=== PATIENT | female | born 1940 | race American Indian/Alaskan Native ===

== ENCOUNTER 2016-12-21 06:50 | Inpatient (IN) | payer MEDICARE ==
[2016-12-21 06:50] VITALS: BMI 26.6
[2016-12-21] MEDS ORDERED: Sodium Chloride 0.9% 1,000 ML IV ONE (07:29)
[2016-12-21 07:55] LABS: INR 1.4
[2016-12-21 07:57] LABS: BASO # 0.1 K/uL (0.0-0.2); BASO % 0.5 % (0.0-2.0); EOS # 0.1 K/uL (0.0-0.7); EOS % 0.4 % (0.0-4.0); HEMATOCRIT 25.7 % (34.0-47.0); LYMPH # 0.8 K/uL (1.0-4.3); LYMPH % 5.5 % (20.0-40.0); MEAN CELL VOLUME 79.6 fL (81.0-99.0); MEAN CORPUSCULAR HEMOGLOBIN 24.8 pg (27.0-31.0); MEAN CORPUSCULAR HGB CONC 31.1 g/dL (33.0-37.0); MEAN PLATELET VOLUME 7.9 fL (7.2-11.7); MONO # 4.5 K/uL (0.0-0.8); MONO % 31.8 % (0.0-10.0); PLATELET COUNT 447 K/uL (130-400); RED CELL DISTRIBUTION WIDTH 21.4 % (11.5-14.5)
[2016-12-21 07:59] LABS: CHLORIDE 102 mmol/L (98-107); POTASSIUM 3.6 mmol/L (3.6-5.2); SODIUM 145 mmol/L (132-148)
[2016-12-21 08:01] LABS: GFR AFRICAN-AMERICAN > 60
[2016-12-21 08:02] LABS: ALB/GLOB RATIO 0.8 (1.0-2.1); ALKALINE PHOSPHATASE 290 U/L (38-126); ALT/SGPT 27 U/L (9-52); AST/SGOT 67 U/L (14-36); BILIRUBIN,TOTAL 1.1 mg/dL (0.2-1.3); BLOOD UREA NITROGEN 7 mg/dL (7-17); CARBON DIOXIDE 29 mmol/L (22-30); GLUCOSE,RANDOM 84 mg/dL (65-105)
[2016-12-21 08:03] LABS: CALCIUM 8.8 mg/dl (8.6-10.4)
[2016-12-21 08:31] LABS: NEUTROPHIL 63 % (50-75); TOTAL CELLS COUNTED 100
[2016-12-21 08:32] LABS: LARGE PLATELETS PRESENT
[2016-12-21] MEDS ORDERED: Sodium Chloride 0.9% 500 ML IV ONE ×2 (08:33→10:01)
--- NOTE | 2016-12-21 08:44 | C.PDOC ---
History Of Present Illness 76 year old female, with PMHx of partial hysterectomy, presents to ED with complaints of general malaise, and swelling to lower extremities. Pt notes that she lost 30lbs over the last 3 months. Pt admits to feeling "bumps" in the pelvis region. Pt notes being seen by PMD, Dr. Gutierrez, last week who instructed her to report to ER for further evaluation. Notes having normal BM today. Denies any blood in stool. Pt notes that she was started on Lasix for leg swelling few months ago. Otherwise, denies any chest pain, shortness of breath, palpitations, abdominal pain, n/v/d, dysuria, hematuria, fever, change in sensation, or any other associated symptoms at this time. Time Seen by Provider: 12/21/16 07:14 Chief Complaint (Nursing): Medical Clearance History Per: Patient History/Exam Limitations: no limitations Onset/Duration Of Symptoms: Days Current Symptoms Are (Timing): Still Present Recent travel outside of the [place]: No Additional History Per: Patient Past Medical History Reviewed: Historical Data, Nursing Documentation, Vital Signs Vital Signs: Last Vital Signs Temp 100 F H 12/21/16 12:45 Pulse 163 H 12/21/16 12:45 Resp 22 12/21/16 12:45 BP 137/74 12/21/16 12:45 Pulse Ox 96 12/21/16 12:45 - Medical History PMH: Arthritis (right knee) Family History: States: Unknown Family Hx - Social History Hx Alcohol Use: No Hx Substance Use: No - Immunization History Hx Tetanus Toxoid Vaccination: No Hx Influenza Vaccination: No Hx Pneumococcal Vaccination: No Review Of Systems Except As Marked, All Systems Reviewed And Found Negative. Constitutional: Positive for: Weakness, Malaise. Negative for: Fever, Chills Cardiovascular: Positive for: Edema (swelling to bilateral legs). Negative for : Chest Pain, Palpitations, Light Headedness Respiratory: Negative for: Cough, Shortness of Breath, Hemoptysis Gastrointestinal: Negative for: Nausea, Vomiting, Abdominal Pain, Diarrhea, Constipation, Hematochezia Genitourinary: Negative for: Dysuria, Frequency, Hematuria Musculoskeletal: Negative for: Leg Pain Skin: Positive for: Other ("bumps" in the pelvic region). Negative for: Rash, Bruising Neurological: Negative for: Headache, Dizziness Physical Exam - Physical Exam Appears: Non-toxic, No Acute Distress, Chronically Ill Skin: Normal Color, Warm, Dry, No Rash Head: Atraumatic, Normacephalic Eye(s): bilateral: Normal Inspection, EOMI Nose: Normal Oral Mucosa: Moist Neck: Normal ROM, Supple Chest: Symmetrical Cardiovascular: Rhythm Regular (tachycardic), No Murmur Respiratory: Normal Breath Sounds, No Accessory Muscle Use, No Rales, No Rhonchi , No Wheezing Gastrointestinal/Abdominal: Soft, No Tenderness, No Guarding, No Rebound, Other (multiple non-mobile masses in the r/l inguinal area. Well healed scar. ) Back: No CVA Tenderness Extremity: Normal ROM, No Tenderness, Pedal Edema (b/l), Capillary Refill (<2 sec.), No Deformity, Swelling (bilateral lower extremity edema) Extremity: Bilateral: Atraumatic, Normal Color And Temperature Neurological/Psych: Oriented x3, Normal Speech ED Course And Treatment - Laboratory Results Result Diagrams: 12/21/16 07:44 12/21/16 07:44 ECG: Interpreted By Me, Viewed By Me ECG Rhythm: Sinus Tachycardia Rate From EC (bpm) O2 Sat by Pulse Oximetry: 96 (on RA) Pulse Ox Interpretation: Normal Progress Note: Blood work, UA, EKG, Abd & pelvis CT ordered and reviewed. At 08: 20, I was informed by nurse that yaya is tachycardic in the 180s. Pt was evaluated by myself and Dr. Hunter at beside. Pt admits to being asymptomatic, pt denies any chest pain, shortness of breath, or dizziness. Additional EKG was ordered, which showed sinus tachycarida at 178bpm. On re-evaluation, pt hr is in the 100s and states she feels "better". Case discussed with Dr. Gutierrez who agrees upon plan and admission. Disposition - Disposition Disposition: HOSPITALIZED Disposition Time: 12:00 Condition: STABLE - Clinical Impression Clinical Impression: Anemia, Lymphadenopathy, Malaise and fatigue - PA / GI TECHNICIAN / Resident Statement MD/DO has reviewed & agrees with the documentation as recorded. - Scribe Statement The provider has reviewed the documentation as recorded by the Scribe Abisai Ya All medical record entries made by the Scribe were at my direction and personally dictated by me. I have reviewed the chart and agree that the record accurately reflects my personal performance of the history, physical exam, medical decision making, and the department course for this patient. I have also personally directed, reviewed, and agree with the discharge instructions and disposition.
[2016-12-21] MEDS ORDERED: Iodixanol 320 MG/ML 100 ML BOTTLE IV ONE (09:50)
--- NOTE | 2016-12-21 10:19 | RAD ---
Chest x-ray single frontal view History: Chest pain. Comparison: None available. Findings: Right hilar prominence. Right paratracheal airspace opacity may represent prominent vasculature. Mild venous congestion. Degenerative changes in the spine with paravertebral osteophytes. Mild calcification at the aortic knob. Tortuous aorta. Degenerative changes in the spine and shoulders. Impression: Right hilar prominence. Right paratracheal airspace opacity may represent prominent vasculature. Mild venous congestion.
--- NOTE | 2016-12-21 11:00 | CT ---
PROCEDURE: CT Abdomen and Pelvis with contrast HISTORY: pain COMPARISON: None. TECHNIQUE: Contrast dose: Visipaque 320, 100 cc. Radiation dose: Total exam DLP = 509 mGy-cm. This CT exam was performed using one or more of the following dose reduction techniques: Automated exposure control, adjustment of the mA and/or kV according to patient size, and/or use of iterative reconstruction technique. FINDINGS: LOWER THORAX: Unremarkable. LIVER: There are numerous poorly enhancing masses scattered more so 1 the right than left hepatic lobes with the largest area measuring over 10 cm at the right lobe liver likely reflecting confluent lesions suspicious for metastatic disease including potential lymphoma though this is not definite. Multiple lucencies are scattered throughout the spleen indicative of likely the same process. Spleen remains normal size with liver appearing upper limits of normal size. GALLBLADDER AND BILE DUCTS: Gallbladder is distended but limited evaluation to lack of oral contrast material with likely enlarged lymph nodes abutting it as well as the duodenum. No radiodense cholelithiasis. PANCREAS: No intrinsic pathology seen related to the pancreas are the pancreas is displaced anteriorly by extensive retroperitoneal lymphadenopathy appear. SPLEEN: See liver section above. ADRENALS: Unremarkable. No mass. KIDNEYS AND URETERS: Unremarkable. No hydronephrosis. No solid massA 3.1 cm cyst is seen at the midpole left kidney. There is a E 1.6 cm lucency identified at the midpole right kidney measuring 51 Hounsfield units possibly representing a a hyperdense cyst or possible nodule. Follow-up MRI or CT without contrast is advised for better characterization. No obstructive uropathy bilaterally. Additional tiny lucencies are seen at the mid to lower pole right kidney too small to characterize. VASCULATURE: Unremarkable. No aortic aneurysm. BOWEL: No bowel obstruction is appreciated however lack of oral contrast limits interpretation significantly. Thickening of the distal descending colon and primarily the sigmoid colon is appreciate suspicious for potential colitis or mass. Minimal pelvic ascites is appreciated. No definitive pericolic reaction is noted although sigmoid diverticular are identified. The amount of mural thickening appears out of context and separate from the greatest area of sigmoid diverticular change. APPENDIX: Normal appendix. PERITONEUM: Mild pelvic ascites identified. LYMPH NODES: Gross lymphadenopathy is appreciate throughout the abdomen and pelvis including confluent likely lymphoid tissue at the mid mid retroperitoneum measuring 12.0 x 8.0 cm. Large lymph nodes are seen the bilateral inguinal regions with lymph nodes measuring 6.1 cm and 5.2 cm in the right groin and inferior left inguinal lymph nodes measuring up to 3.7 cm greatest dimension. Moderate to severe pelvic side wall lymphadenopathy is appreciated as well. BLADDER: Unremarkable. REPRODUCTIVE: Prior hysterectomy disease. Clinically correlate. BONES: No acute fracture. OTHER FINDINGS: None. IMPRESSION: 1. Gross abdominal and pelvic lymphadenopathy is appreciated as discussed above displaced large retroperitoneal organs peripherally. Numerous poorly enhancing masses seen in the liver greater than the spleen suspicious for metastatic. Further clinical correlation is advised. 2. Retained fecal material obscures the colon and lack of oral contrast limits evaluation however significant mural thickening is felt throughout the sigmoid segment with limited colonic diverticular disease in a pattern suspicious for segmental colitis or malignancy. Please see discussion above. 3. Mild pelvic ascites. 4. See additional details above.
[2016-12-21] MEDS ORDERED: Azithromycin 500mg/250ML NS 500 MG/250 ML BAG IVPB STA (13:46)
[2016-12-21] MEDS ORDERED: cefTRIAXone IV 1 gm in Dextros 50 ML IVPB ONE (13:46)
[2016-12-21 14:21] LABS: RBC URINE 2 /hpf (0-3); URINE BILIRUBIN NEGATIVE (NEGATIVE); URINE BLOOD NEGATIVE (NEGATIVE); URINE COLOR Amber (YELLOW); URINE GLUCOSE (UA) NORMAL (Normal); URINE KETONE TRACE mg/dL (NEGATIVE); URINE LEUKOCYTE ESTERASE 1+ Leu/uL (Negative); URINE PROTEIN 1+ mg/dL (NEGATIVE); WBC URINE 4 /hpf (0-5)
[2016-12-21] MEDS ORDERED: Labetalol 25mg/5ml Syringe IVP STA ×2 (16:37→21:58)
[2016-12-21] MEDS ORDERED: Labetalol 25mg/5ml Syringe ONE (17:02)
--- NOTE | 2016-12-21 17:29 | CP.PCM.HP ---
History of Present Illness - History of Present Illness History of Present Illness: pt came in to er felt bad sinsce last night weeke fever loss of apetite was seen [place] had swallen lumps pelvis aneamia oeadeama lower ext Present on Admission - Present on Admission Any Indicators Present on Admission: No Review of Systems - Review of Systems Systems not reviewed;Unavailable: Acuity of Condition, Unstable Vital Signs Review of Systems: tackycardia - Constitutional Constitutional: Anorexia, Fever, Weight Loss, Weakness - EENT Eyes: As Per HPI Ears: As Per HPI Nose/Mouth/Throat: As Per HPI - Breasts Breasts: As Per HPI - Cardiovascular Cardiovascular: Rapid Heart Rate Additional comments: 170 - Respiratory Respiratory: Dyspnea on Exertion - Gastrointestinal Gastrointestinal: Other (poor apet) Additional comments: poor apetite - Genitourinary Genitourinary: As Per HPI - Reproductive: Female Reproductive:Female: Post Menopausal, Pelvic Pain Additional comments: sweling pelvs s/p partial hystrectomy - Menstruation Menstruation: Post Menopausal - Musculoskeletal Musculoskeletal: As Per HPI - Integumentary Integumentary: As Per HPI - Neurological Neurological: As Per HPI - Psychiatric Psychiatric: As Per HPI - Endocrine Endocrine: As Per HPI - Hematologic/Lymphatic Additional comments: aneamia Past Patient History - Infectious Disease Hx of Infectious Diseases: None - Past Medical History & Family History Past Medical History?: Yes - Past Social History Smoking Status: Never Smoked - HEENT Hx HEENT Problems: Yes Other/Comment: left neck mass - MUSCULOSKELETAL/RHEUMATOLOGICAL Hx Arthritis: Yes (right knee) - PSYCHIATRIC Hx Substance Use: No - SURGICAL HISTORY Hx Surgeries: No - ANESTHESIA Hx Anesthesia: No Meds Allergies/Adverse Reactions: Allergies Allergy/AdvReac Type Severity Reaction Status Date / Time No Known Allergies Allergy Verified 12/21/16 06:56 Physical Exam - Constitutional Appears: In Acute Distress - Head Exam Head Exam: ATRAUMATIC - Eye Exam Eye Exam: Normal appearance Pupil Exam: NORMAL ACCOMODATION - ENT Exam ENT Exam: Mucous Membranes Moist, Normal Exam - Neck Exam Neck exam: Positive for: Full Rom - Respiratory Exam Respiratory Exam: Clear to Auscultation Bilateral - Cardiovascular Exam Cardiovascular Exam: Tachycardia - GI/Abdominal Exam GI & Abdominal Exam: Mass Additional comments: lower abd mases - Exam Exam: NORMAL INSPECTION - Extremities Exam Extremities exam: Positive for: pedal edema - Back Exam Back exam: NORMAL INSPECTION - Neurological Exam Neurological exam: Alert, Oriented x3 - Psychiatric Exam Psychiatric exam: Normal Mood - Skin Skin Exam: Pallor Results - Vital Signs Recent Vital Signs: Last Vital Signs Temp 99.4 F 12/21/16 16:10 Pulse 95 H 12/21/16 17:18 Resp 20 12/21/16 17:18 BP 117/64 12/21/16 17:18 Pulse Ox 96 12/21/16 17:18 - Labs Result Diagrams: 12/21/16 07:44 12/21/16 07:44 Labs: Laboratory Results - last 24 hr 12/21/16 12/21/16 12/21/16 09:19 09:37 14:09 Urine Color [place] Urine Clarity Clear Urine pH 7.0 Ur Specific [place] 1.046 H Urine Protein 1+ H Urine Glucose (UA) Normal Urine Ketones Trace Urine Blood Negative Urine Nitrate Negative Urine Bilirubin Negative Urine Urobilinogen 4.0 H Ur Leukocyte Esterase 1+ H Urine WBC (Auto) 4 Urine RBC (Auto) 2 Ur Squamous Epith Cells 2 Stool Occult Blood Negative Blood Type B POSITIVE Antibody Screen Negative Assessment & Plan - Assessment and Plan (Free Text) Assessment: fever wt loss lymphadenopathy aneamia possible lymphoma r/o malignancy r/o sepses ac tackyarythmia Plan: admit and as per orders - Date & Time Date: 12/21/16 Time: 17:39
[2016-12-21 22:54] LABS: HEMATOCRIT 23.2 % (34.0-47.0); MEAN CELL VOLUME 80.6 fL (81.0-99.0); MEAN CORPUSCULAR HEMOGLOBIN 25.3 pg (27.0-31.0); MEAN CORPUSCULAR HGB CONC 31.4 g/dL (33.0-37.0); MEAN PLATELET VOLUME 7.7 fL (7.2-11.7); RED CELL DISTRIBUTION WIDTH 21.1 % (11.5-14.5); WHITE BLOOD COUNT 11.7 K/uL (4.8-10.8)
--- NOTE | 2016-12-21 23:11 | CT ---
EXAM: CT Angiography Chest With Intravenous Contrast CLINICAL HISTORY: 76 years old, female; Signs and symptoms and condition or disease; Cardiovascular condition or disease; Other: Tachycardia; Tachypnea; Additional info: R/O pe, tachycardia TECHNIQUE: Axial computed tomographic angiography images of the chest with intravenous contrast using pulmonary embolism protocol. All CT scans at this facility use one or more dose reduction techniques, viz.: automated exposure control; ma/kV adjustment per patient size (including targeted exams where dose is matched to indication; i.e. head); or iterative reconstruction technique. MIP reconstructed images were created and reviewed. Coronal and sagittal reformatted images were created and reviewed. CONTRAST: 100 mL of visipaque 320 administered intravenously. COMPARISON: No relevant prior studies available. FINDINGS: Pulmonary arteries: No pulmonary embolism. Aorta: No thoracic aortic aneurysm. 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 Lungs: No mass. No consolidation. Interstitial thickening is detected bilaterally, along with centrilobular emphysema. Pleural spaces: No significant effusion. No pneumothorax. Heart: No cardiomegaly. No significant pericardial effusion. No evidence of right heart dysfunction. Bones: No acute fracture. No lytic or blastic lesions are identified. Lymph nodes: No pathologically enlarged lymph nodes. Within the upper abdomen are multiple poorly enhancing lesions both within the liver and spleen, along with extensive para-aortic lymphadenopathy. IMPRESSION: No pulmonary embolism. Chronic interstitial lung disease. Aberrant right subclavian artery. Findings within the upper abdomen, suggesting diffuse metastatic disease.
--- NOTE | 2016-12-21 23:16 | CP.PCM.CON ---
History of Present Illness - History of Present Illness History of Present Illness: CCM 76 yo female with c/ weakness x 5 days. Found with SVT in ED which resoved after labetolol. Had [address] and HR normalized after 2nd dose labetolol. Pt denied chest pain /sob /n /v /d /fever /cough. CT showed JULIO in abd. and pelvis. RML encasement. Masses in liver > spleen. Started on Ceftriaxone in ED. ROS- as noted All- NKDA Social- denied tob/ prior etoh/ no drugs meds-reviewed FH- Unknown PE T-100 P-94 R-25 BP-120/65 Neck- no jvd lungs- bilat bs hert-rr aBd- bs+, soft, nontender Ext- bilat LE edema, nontender Neuro- nonfocal Labs, EKG,x-rays -reviewed A&P S/P SVT Lymphadenopathy /RML encasement /liver & spleen masses- R/O Metastatic Ca Lactic Acidosis Anemia cont beta lewis PO cont IV fluid f/u labs /lactate check cultures Heme Onc eval Pulm Eval OK for telemetry DVT prophylaxis d/w ED staff re-consult prn Past Patient History - Infectious Disease Hx of Infectious Diseases: None - Past Medical History & Family History Past Medical History?: Yes - Past Social History Smoking Status: Never Smoked - HEENT Hx HEENT Problems: Yes Other/Comment: left neck mass - MUSCULOSKELETAL/RHEUMATOLOGICAL Hx Arthritis: Yes (right knee) - PSYCHIATRIC Hx Substance Use: No - SURGICAL HISTORY Hx Surgeries: No - ANESTHESIA Hx Anesthesia: No Meds Allergies/Adverse Reactions: Allergies Allergy/AdvReac Type Severity Reaction Status Date / Time No Known Allergies Allergy Verified 12/21/16 06:56 - Medications Medications: Current Medications Acetaminophen (Tylenol 325mg Tab) 650 mg PO Q6 PRN PRN Reason: Fever >100.4 F Last Admin: 12/21/16 14:50 Dose: 650 mg Metoprolol Tartrate (Lopressor) 12.5 mg PO BID [facility] Last Admin: 12/21/16 22:02 Dose: Not Given Results - Vital Signs Recent Vital Signs: Last Vital Signs Temp 99.4 F 12/21/16 16:10 Pulse 156 H 12/21/16 22:33 Resp 20 12/21/16 22:33 BP 118/67 12/21/16 22:33 Pulse Ox 96 12/21/16 22:33 - Labs Result Diagrams: 12/21/16 22:51 12/21/16 07:44 Labs: Laboratory Results - last 24 hr 12/21/16 12/21/16 12/21/16 09:19 09:37 14:09 WBC RBC Hgb Hct MCV MCH MCHC RDW Plt Count MPV Lactic Acid Urine Color [place] Urine Clarity Clear Urine pH 7.0 Ur Specific [place] 1.046 H Urine Protein 1+ H Urine Glucose (UA) Normal Urine Ketones Trace Urine Blood Negative Urine Nitrate Negative Urine Bilirubin Negative Urine Urobilinogen 4.0 H Ur Leukocyte Esterase 1+ H Urine WBC (Auto) 4 Urine RBC (Auto) 2 Ur Squamous Epith Cells 2 Stool Occult Blood Negative Blood Type B POSITIVE Antibody Screen Negative 12/21/16 12/21/16 18:03 22:51 WBC 11.7 H RBC 2.88 L Hgb 7.3 L Hct 23.2 L MCV 80.6 L MCH 25.3 L MCHC 31.4 L RDW 21.1 H Plt Count 381 MPV 7.7 Lactic Acid 3.4 H Urine Color Urine Clarity Urine pH Ur Specific [place] Urine Protein Urine Glucose (UA) Urine Ketones Urine Blood Urine Nitrate Urine Bilirubin Urine Urobilinogen Ur Leukocyte Esterase Urine WBC (Auto) Urine RBC (Auto) Ur Squamous Epith Cells Stool Occult Blood Blood Type Antibody Screen Assessment & Plan (1) SVT (supraventricular tachycardia) Status: Acute (2) Lymphadenopathy Status: Acute
[2016-12-22] MEDS: cefTRIAXone IV 1 gm in Dextros 50 ML IVPB SCH (10:11)
--- NOTE | 2016-12-22 10:36 | CP.PCM.CON ---
History of Present Illness - History of Present Illness History of Present Illness: 76 year old female with no past medical history admitted with fatigue, found to have diffuse abdominal/pelvic lymphadenopathy concerning for malignancy. THe patient notes to her symptoms starting about 1 month ago and have slowly increased. In the last 2-3 days she has had extreme episodes of fatigue and poor PO intake. A CT scan of the abdomen and pelvis revealed abdominal and pelvic lymphadenopathy and sigmoid colon thickening. Past medical history: None Past surgical history: Hysterectomy for fibroids Family history: Denies hematologic and oncologic problems Social history: Denies tobacco, alcohol, and illicit drug use. Allergies: NKA Review of systems: All remaining review of systems including HEENT, cardiovsacular, respiratory, gastrointestinal, genitourinary, musculoskeletal, dermatologic, neurologic, and psychiatric are negative unless mentioned in the HPI. Past Patient History - Infectious Disease Hx of Infectious Diseases: None - Past Medical History & Family History Past Medical History?: Yes - Past Social History Smoking Status: Never Smoked - CARDIAC Hx Cardiac Disorders: No - PULMONARY Hx Respiratory Disorders: No - NEUROLOGICAL Hx Neurological Disorder: No - HEENT Hx HEENT Problems: No - RENAL Hx Chronic Kidney Disease: No - ENDOCRINE/METABOLIC Hx Endocrine Disorders: No - HEMATOLOGICAL/ONCOLOGICAL Hx Blood Disorders: No - INTEGUMENTARY Hx Dermatological Problems: No - MUSCULOSKELETAL/RHEUMATOLOGICAL Hx Musculoskeletal Disorders: No Hx Arthritis: No Hx Falls: No - GASTROINTESTINAL Hx Gastrointestinal Disorders: No - GENITOURINARY/GYNECOLOGICAL Hx Genitourinary Disorders: No - PSYCHIATRIC Hx Psychophysiologic Disorder: No Hx Substance Use: No - SURGICAL HISTORY Hx Surgeries: No - ANESTHESIA Hx Anesthesia: No Hx Anesthesia Reactions: No Hx Malignant Hyperthermia: No Has any member of the family had a problem w/ anesthesia?: No Meds Allergies/Adverse Reactions: Allergies Allergy/AdvReac Type Severity Reaction Status Date / Time No Known Allergies Allergy Verified 12/21/16 06:56 - Medications Medications: Current Medications Acetaminophen (Tylenol 325mg Tab) 650 mg PO Q6 PRN PRN Reason: Fever >100.4 F Last Admin: 12/21/16 14:50 Dose: 650 mg Ceftriaxone Sodium (Rocephin Iv 1 Gm Duplex) 50 mls @ 100 mls/hr IVPB DAILY [facility] Last Admin: 12/22/16 10:11 Dose: 100 mls/hr Metoprolol Tartrate (Lopressor) 12.5 mg PO BID [facility] Last Admin: 12/22/16 10:11 Dose: Not Given Physical Exam - Head Exam Head Exam: ATRAUMATIC - ENT Exam ENT Exam: Mucous Membranes Dry - Respiratory Exam Respiratory Exam: NORMAL BREATHING PATTERN - Cardiovascular Exam Cardiovascular Exam: +S1, +S2 - GI/Abdominal Exam GI & Abdominal Exam: Normal Bowel Sounds - Extremities Exam Extremities exam: Positive for: normal inspection - Neurological Exam Neurological exam: Oriented x3 - Psychiatric Exam Psychiatric exam: Normal Affect, Normal Mood - Skin Skin Exam: Warm Results - Vital Signs Recent Vital Signs: Last Vital Signs Temp 98.4 F 12/22/16 07:59 Pulse 89 12/22/16 08:38 Resp 20 12/22/16 07:59 BP 127/61 12/22/16 07:59 Pulse Ox 97 12/22/16 07:59 - Labs Result Diagrams: 12/21/16 22:51 12/21/16 07:44 Labs: Laboratory Results - last 24 hr 12/21/16 12/21/16 12/21/16 14:09 18:03 22:51 WBC RBC Hgb Hct MCV MCH MCHC RDW Plt Count MPV Lactic Acid 3.4 H 5.7 H* Urine Color [place] Urine Clarity Clear Urine pH 7.0 Ur Specific [place] 1.046 H Urine Protein 1+ H Urine Glucose (UA) Normal Urine Ketones Trace Urine Blood Negative Urine Nitrate Negative Urine Bilirubin Negative Urine Urobilinogen 4.0 H Ur Leukocyte Esterase 1+ H Urine WBC (Auto) 4 Urine RBC (Auto) 2 Ur Squamous Epith Cells 2 Blood Type Antibody Screen 12/21/16 12/22/16 12/22/16 22:51 00:31 06:23 WBC 11.7 H RBC 2.88 L Hgb 7.3 L Hct 23.2 L MCV 80.6 L MCH 25.3 L MCHC 31.4 L RDW 21.1 H Plt Count 381 MPV 7.7 Lactic Acid 5.0 H* Urine Color Urine Clarity Urine pH Ur Specific [place] Urine Protein Urine Glucose (UA) Urine Ketones Urine Blood Urine Nitrate Urine Bilirubin Urine Urobilinogen Ur Leukocyte Esterase Urine WBC (Auto) Urine RBC (Auto) Ur Squamous Epith Cells Blood Type B POSITIVE Antibody Screen Negative Assessment & Plan (1) Anemia Assessment and Plan: will check ferritin, retic count, b12, folate, FOBT to further characterize recommend transfusing 2U PRBC Status: Acute (2) Lymphadenopathy Assessment and Plan: recommend general surgery evaluation for excisional lymph node biopsy ?malignancy Status: Acute (3) Colonic thickening Assessment and Plan: recommend GI evaluation will check CEA Status: Acute (4) Leukocytosis Assessment and Plan: empiric antibiotics Thank you for this interesting consult. Status: Acute
--- NOTE | 2016-12-22 10:43 | CP.PCM.PN ---
Subjective - Date & Time of Evaluation Date of Evaluation: 12/22/16 Time of Evaluation: 10:40 - Subjective Subjective: FEELS BETER TODAY HAS BEEN GETING IV BETA LIZ WHEN HT RATE 170 TWICE YESTERDAY Objective - Vital Signs/Intake and Output Vital Signs (last 24 hours): Temp Pulse Resp BP Pulse Ox 98.4 F 89 20 127/61 97 12/22/16 07:59 12/22/16 08:38 12/22/16 07:59 12/22/16 07:59 12/22/16 07:59 Intake and Output: 12/22/16 12/22/16 06:59 18:59 Intake Total 20 Balance 20 - Medications Medications: Current Medications Acetaminophen (Tylenol 325mg Tab) 650 mg PO Q6 PRN PRN Reason: Fever >100.4 F Last Admin: 12/21/16 14:50 Dose: 650 mg Ceftriaxone Sodium (Rocephin Iv 1 Gm Duplex) 50 mls @ 100 mls/hr IVPB DAILY [facility] Last Admin: 12/22/16 10:11 Dose: 100 mls/hr Metoprolol Tartrate (Lopressor) 12.5 mg PO BID [facility] Last Admin: 12/22/16 10:11 Dose: Not Given - Labs Labs: 12/21/16 22:51 12/21/16 07:44 PT 16.0 SECONDS (9.7-12.2) H 12/21/16 07:44 INR 1.4 12/21/16 07:44 APTT 37 SECONDS (21-34) H 12/21/16 07:44 - Constitutional Appears: Non-toxic - Head Exam Head Exam: ATRAUMATIC - Eye Exam Eye Exam: Normal appearance Pupil Exam: NORMAL ACCOMODATION - ENT Exam ENT Exam: Mucous Membranes Moist - Neck Exam Neck Exam: Normal Inspection - Respiratory Exam Respiratory Exam: Clear to Ausculation Bilateral - Cardiovascular Exam Cardiovascular Exam: Tachycardia - GI/Abdominal Exam GI & Abdominal Exam: Mass, Normal Bowel Sounds - Rectal Exam Rectal Exam: NORMAL INSPECTION - Extremities Exam Extremities Exam: Normal Inspection - Back Exam Back Exam: NORMAL INSPECTION - Neurological Exam Neurological Exam: Abnormal Gait, Alert, Oriented x3 - Psychiatric Exam Psychiatric exam: Normal Affect - Skin Skin Exam: Pallor Assessment and Plan - Assessment and Plan (Free Text) Assessment: AC FEVER WEEKNESS LOSS OF APETITE [address] MASES R/O LYMPHOMA TACHY ARRYTHMIA Plan: PER ORDERS
--- NOTE | 2016-12-22 10:57 | CP.PCM.CON ---
History of Present Illness - History of Present Illness History of Present Illness: cc: Tachycardia 76 year old female with no past medical history admitted with fatigue, found to have diffuse abdominal/pelvic lymphadenopathy concerning for malignancy. THe patient notes to her symptoms starting about 1 month ago and have slowly increased. In the last 2-3 days she has had extreme episodes of fatigue and poor PO intake. A CT scan of the abdomen and pelvis revealed abdominal and pelvic lymphadenopathy and sigmoid colon thickening. recently seen by PMD for worsening LE edema and fatigue advised f/u with CT abdomen and placed on diuretics. Overall patient has 2 jobs and is able to perform > 4 mets up until recent sx's : Independent with ADLs and reports no major past medical history. Past medical history: None Past surgical history: Hysterectomy for fibroids Family history: Denies hematologic and oncologic problems Social history: Denies tobacco, alcohol, and illicit drug use. Allergies: NKA Review of systems: All remaining review of systems including HEENT, cardiovsacular, respiratory, gastrointestinal, genitourinary, musculoskeletal, dermatologic, neurologic, and psychiatric are negative unless mentioned in the HPI. Review of Systems - Review of Systems All systems: reviewed and no additional remarkable complaints except Past Patient History - Infectious Disease Hx of Infectious Diseases: None - Past Medical History & Family History Past Medical History?: Yes - Past Social History Smoking Status: Never Smoked - CARDIAC Hx Cardiac Disorders: No - PULMONARY Hx Respiratory Disorders: No - NEUROLOGICAL Hx Neurological Disorder: No - HEENT Hx HEENT Problems: No - RENAL Hx Chronic Kidney Disease: No - ENDOCRINE/METABOLIC Hx Endocrine Disorders: No - HEMATOLOGICAL/ONCOLOGICAL Hx Blood Disorders: No - INTEGUMENTARY Hx Dermatological Problems: No - MUSCULOSKELETAL/RHEUMATOLOGICAL Hx Musculoskeletal Disorders: No Hx Arthritis: No Hx Falls: No - GASTROINTESTINAL Hx Gastrointestinal Disorders: No - GENITOURINARY/GYNECOLOGICAL Hx Genitourinary Disorders: No - PSYCHIATRIC Hx Psychophysiologic Disorder: No Hx Substance Use: No - SURGICAL HISTORY Hx Surgeries: No - ANESTHESIA Hx Anesthesia: No Hx Anesthesia Reactions: No Hx Malignant Hyperthermia: No Has any member of the family had a problem w/ anesthesia?: No Meds Allergies/Adverse Reactions: Allergies Allergy/AdvReac Type Severity Reaction Status Date / Time No Known Allergies Allergy Verified 12/21/16 06:56 - Medications Medications: Current Medications Acetaminophen (Tylenol 325mg Tab) 650 mg PO Q6 PRN PRN Reason: Fever >100.4 F Last Admin: 12/21/16 14:50 Dose: 650 mg Ceftriaxone Sodium (Rocephin Iv 1 Gm Duplex) 50 mls @ 100 mls/hr IVPB DAILY [facility] Last Admin: 12/22/16 10:11 Dose: 100 mls/hr Metoprolol Tartrate (Lopressor) 12.5 mg PO BID [facility] Last Admin: 12/22/16 10:11 Dose: Not Given Physical Exam - Constitutional Appears: No Acute Distress, Other (slim body habitus) - Eye Exam Eye Exam: EOMI, Normal appearance, PERRL - ENT Exam ENT Exam: Mucous Membranes Moist - Respiratory Exam Respiratory Exam: Clear to Auscultation Bilateral. absent: Rhonchi, Wheezes - Cardiovascular Exam Cardiovascular Exam: Tachycardia, JVD (5cm), +S1, +S2 - GI/Abdominal Exam GI & Abdominal Exam: Soft. absent: Tenderness - Extremities Exam Extremities exam: Negative for: normal inspection (3+ pitting edema u to thigh) - Neurological Exam Neurological exam: Alert, Oriented x3 - Skin Skin Exam: Normal Color, Warm Results - Vital Signs Recent Vital Signs: Last Vital Signs Temp 98.4 F 12/22/16 07:59 Pulse 89 12/22/16 08:38 Resp 20 12/22/16 07:59 BP 127/61 12/22/16 07:59 Pulse Ox 97 12/22/16 07:59 - Labs Result Diagrams: 12/21/16 22:51 12/21/16 07:44 Labs: Laboratory Results - last 24 hr 12/21/16 12/21/16 12/21/16 14:09 18:03 22:51 WBC RBC Hgb Hct MCV MCH MCHC RDW Plt Count MPV Lactic Acid 3.4 H 5.7 H* Urine Color [place] Urine Clarity Clear Urine pH 7.0 Ur Specific [place] 1.046 H Urine Protein 1+ H Urine Glucose (UA) Normal Urine Ketones Trace Urine Blood Negative Urine Nitrate Negative Urine Bilirubin Negative Urine Urobilinogen 4.0 H Ur Leukocyte Esterase 1+ H Urine WBC (Auto) 4 Urine RBC (Auto) 2 Ur Squamous Epith Cells 2 Blood Type Antibody Screen 12/21/16 12/22/16 12/22/16 22:51 00:31 06:23 WBC 11.7 H RBC 2.88 L Hgb 7.3 L Hct 23.2 L MCV 80.6 L MCH 25.3 L MCHC 31.4 L RDW 21.1 H Plt Count 381 MPV 7.7 Lactic Acid 5.0 H* Urine Color Urine Clarity Urine pH Ur Specific [place] Urine Protein Urine Glucose (UA) Urine Ketones Urine Blood Urine Nitrate Urine Bilirubin Urine Urobilinogen Ur Leukocyte Esterase Urine WBC (Auto) Urine RBC (Auto) Ur Squamous Epith Cells Blood Type B POSITIVE Antibody Screen Negative - EKG Data EKG Interpreted by: Myself (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
--- NOTE | 2016-12-22 11:50 | CP.PCM.CON ---
History of Present Illness - History of Present Illness History of Present Illness: General Surgery Consult Note for Dr. Heredia Reason for consult: Bilateral inguinal lymphadenopathy 76 with no significant PMH presents with bilateral inguinal lymphadenopthy. Patient was admitted yesterday for chronic fatigue and anorexia. Patient states that she has been having these symptoms intermittently since the beginning of November. Patient saw her primary at that time who instructed her to go on her vacation and be seen upon her return. Patient symptoms have been worse since last Wednesday and finally decided to be seen yesterday. Patient currently denying any pain. Her only other complaint is intermittent nausea even though she states she is feeling much better today. Denies fever/chills, cp, sob, night sweats, cough, abd pain, n/v/d, constipation, numbness/tingling. PMD: Dr. Gutierrez PMH: Denies Home Meds: MVM Allergy: NKDA PSH: Denies Hosp: Denies FH: Denies Social: former social drinker, denies tobacco/illicit drug use Review of Systems - Constitutional Constitutional: Anorexia, Fatigue. absent: Chills, Fever, Weight Loss, Weakness - EENT Eyes: absent: Change in Vision, Loss of Vision Ears: absent: Dizziness Nose/Mouth/Throat: absent: Nasal Congestion, Sore Throat - Breasts Breasts: absent: Mass, Pain - Cardiovascular Cardiovascular: absent: Chest Pain, Dyspnea, Palpitations, Syncope - Respiratory Respiratory: absent: Cough, Dyspnea on Exertion, Wheezing, Chest Congestion - Gastrointestinal Gastrointestinal: absent: Abdominal Pain, Constipation, Diarrhea, Dyspepsia, Nausea, Vomiting - Genitourinary Genitourinary: absent: Difficulty Urinating, Dysuria, Urinary Incontinence - Musculoskeletal Musculoskeletal: absent: Arthralgias, Myalgias - Integumentary Integumentary: absent: Changing Lesions, New Lesions - Neurological Neurological: absent: Dizziness, Numbness, Headaches, Syncope, Tingling, Tremor , Vertigo, Weakness - Psychiatric Psychiatric: absent: Anxiety, Depression, Homicidal Ideation, Suicidal Ideation - Endocrine Endocrine: Fatigue. absent: Palpitations, Polydipsia, Polyphagia, Polyuria - Hematologic/Lymphatic Hematologic: Lymphadenopathy Past Patient History - Infectious Disease Hx of Infectious Diseases: None - Past Medical History & Family History Past Medical History?: Yes - Past Social History Smoking Status: Never Smoked - CARDIAC Hx Cardiac Disorders: No - PULMONARY Hx Respiratory Disorders: No - NEUROLOGICAL Hx Neurological Disorder: No - HEENT Hx HEENT Problems: No - RENAL Hx Chronic Kidney Disease: No - ENDOCRINE/METABOLIC Hx Endocrine Disorders: No - HEMATOLOGICAL/ONCOLOGICAL Hx Blood Disorders: No - INTEGUMENTARY Hx Dermatological Problems: No - MUSCULOSKELETAL/RHEUMATOLOGICAL Hx Musculoskeletal Disorders: No Hx Arthritis: No Hx Falls: No - GASTROINTESTINAL Hx Gastrointestinal Disorders: No - GENITOURINARY/GYNECOLOGICAL Hx Genitourinary Disorders: No - PSYCHIATRIC Hx Psychophysiologic Disorder: No Hx Substance Use: No - SURGICAL HISTORY Hx Surgeries: No - ANESTHESIA Hx Anesthesia: No Hx Anesthesia Reactions: No Hx Malignant Hyperthermia: No Has any member of the family had a problem w/ anesthesia?: No Meds Allergies/Adverse Reactions: Allergies Allergy/AdvReac Type Severity Reaction Status Date / Time No Known Allergies Allergy Verified 12/21/16 06:56 - Medications Medications: Current Medications Acetaminophen (Tylenol 325mg Tab) 650 mg PO Q6 PRN PRN Reason: Fever >100.4 F Last Admin: 12/21/16 14:50 Dose: 650 mg Ceftriaxone Sodium (Rocephin Iv 1 Gm Duplex) 50 mls @ 100 mls/hr IVPB DAILY [facility] Last Admin: 12/22/16 10:11 Dose: 100 mls/hr Metoprolol Tartrate (Lopressor) 12.5 mg PO BID [facility] Last Admin: 12/22/16 10:11 Dose: Not Given Physical Exam - Constitutional Appears: No Acute Distress, Younger Than Stated Age - Head Exam Head Exam: ATRAUMATIC, NORMOCEPHALIC - Eye Exam Eye Exam: Normal appearance - ENT Exam ENT Exam: Mucous Membranes Moist - Neck Exam Neck exam: Positive for: Full Rom - Respiratory Exam Respiratory Exam: NORMAL BREATHING PATTERN - Cardiovascular Exam Cardiovascular Exam: Tachycardia - GI/Abdominal Exam GI & Abdominal Exam: Soft. absent: Distended, Rebound, Tenderness Additional comments: +bilateral inguinal lympahdenopathy - multiple palpable firm lymph nodes on each side (R larger than L) - Extremities Exam Extremities exam: Positive for: normal capillary refill, pedal pulses present. Negative for: calf tenderness, tenderness - Neurological Exam Neurological exam: Alert, CN II-XII Intact, Oriented x3 - Psychiatric Exam Psychiatric exam: Normal Affect, Normal Mood - Skin Skin Exam: Dry, Intact, Normal Color, Warm Results - Vital Signs Recent Vital Signs: Last Vital Signs Temp 98.4 F 12/22/16 07:59 Pulse 89 12/22/16 08:38 Resp 20 12/22/16 07:59 BP 127/61 12/22/16 07:59 Pulse Ox 97 12/22/16 07:59 - Labs Result Diagrams: 12/21/16 22:51 12/21/16 07:44 Labs: Laboratory Results - last 24 hr 12/21/16 12/21/16 12/21/16 14:09 18:03 22:51 WBC RBC Hgb Hct MCV MCH MCHC RDW Plt Count MPV Lactic Acid 3.4 H 5.7 H* Urine Color [place] Urine Clarity Clear Urine pH 7.0 Ur Specific [place] 1.046 H Urine Protein 1+ H Urine Glucose (UA) Normal Urine Ketones Trace Urine Blood Negative Urine Nitrate Negative Urine Bilirubin Negative Urine Urobilinogen 4.0 H Ur Leukocyte Esterase 1+ H Urine WBC (Auto) 4 Urine RBC (Auto) 2 Ur Squamous Epith Cells 2 Blood Type Antibody Screen 12/21/16 12/22/16 12/22/16 22:51 00:31 06:23 WBC 11.7 H RBC 2.88 L Hgb 7.3 L Hct 23.2 L MCV 80.6 L MCH 25.3 L MCHC 31.4 L RDW 21.1 H Plt Count 381 MPV 7.7 Lactic Acid 5.0 H* Urine Color Urine Clarity Urine pH Ur Specific [place] Urine Protein Urine Glucose (UA) Urine Ketones Urine Blood Urine Nitrate Urine Bilirubin Urine Urobilinogen Ur Leukocyte Esterase Urine WBC (Auto) Urine RBC (Auto) Ur Squamous Epith Cells Blood Type B POSITIVE Antibody Screen Negative Assessment & Plan - Assessment and Plan (Free Text) Plan: 76 F with bilateral inguinal lymphadenopathy -f/u ECHO for cardio clearance -Plan for OR Wed or Thurs for excision of inguinal lymph node pending clearance -Will make NPO for proedure -CHIO Ruelas PGY1
--- NOTE | 2016-12-22 12:11 | CP.PCM.CON ---
History of Present Illness - History of Present Illness History of Present Illness: 76 year old female with no past medical history admitted with fatigue, found to have diffuse abdominal/pelvic lymphadenopathy concerning for malignancy. THe patient notes to her symptoms starting about 1 month ago and have slowly increased. A CT scan of the abdomen and pelvis revealed abdominal and pelvic lymphadenopathy and sigmoid colon thickening. wbc lactate elevated on admission- IV antibiotics started Past medical history: None Past surgical history: Hysterectomy for fibroids Family history: Denies hematologic and oncologic problems Social history: Denies tobacco, alcohol, and illicit drug use. Allergies: NKA Review of systems: All remaining review of systems including HEENT, cardiovsacular, respiratory, gastrointestinal, genitourinary, musculoskeletal, dermatologic, neurologic, and psychiatric are negative unless mentioned in the HPI. Review of Systems - Constitutional Constitutional: As Per HPI, Anorexia, Malaise - EENT Eyes: absent: As Per HPI, Blind Spots, Blurred Vision, Change in Vision, Decreased Night Vision, Diplopia, Discharge, Dry Eye, Exophthalmos, Floaters, Irritation, Itchy Eyes, Loss of Peripheral Vision, Pain, Photophobia, Requires Corrective Lenses, Sees Flashes, Spots in Vision, Tunnel Vision, Other Visual Disturbances, Loss of Vision, Other Ears: absent: As Per HPI, Decreased Hearing, Ear Discharge, Ear Pain, Tinnitus, Abnormal Hearing, Disequilibrium, Dizziness, Other Nose/Mouth/Throat: absent: As Per HPI, Epistaxis, Nasal Congestion, Nasal Discharge, Nasal Obstruction, Nasal Trauma, Nose Pain, Post Nasal Drip, Sinus Pain, Sinus Pressure, Bleeding Gums, Change in Voice, Dental Pain, Dry Mouth, Dysphagia, Halitosis, Hoarsness, Lip Swelling, Mouth Lesions, Mouth Pain, Odynophagia, Sore Throat, Throat Swelling, Tongue Swelling, Facial Pain, Neck Pain, Neck Mass, Other - Breasts Breasts: absent: As Per HPI, Change in Shape, Mass, Pain, Nipple Discharge, Nipple Inversion, Skin Changes, Swelling, Other - Cardiovascular Cardiovascular: absent: As Per HPI, Acrocyanosis, Chest Pain, Chest Pain at Rest , Chest Pain with Activity, Claudication, Diaphoresis, Dyspnea, Dyspnea on Exertion, Edema, Irregular Heart Rhythm, Pain Radiating to Arm/Neck/Jaw, Leg Edema, Leg Ulcers, Lightheadedness, Orthopnea, Palpitations, Paroxysmal Nocturnal Dyspnea, Pedal Edema, Radiating Pain, Rapid Heart Rate, Slow Heart Rate, Syncope, Other - Respiratory Respiratory: absent: As Per HPI, Cough, Dyspnea, Hemoptysis, Dyspnea on Exertion , Wheezing, Snoring, Stridor, Pain on Inspiration, Chest Congestion, Excessive Mucous Production, Change in Mucous Color, Pain with Coughing, Other - Gastrointestinal Gastrointestinal: As Per HPI - Genitourinary Genitourinary: absent: As Per HPI, Change in Urinary Stream, Difficulty Urinating, Dysuria, Flank Pain, Hematuria, Pyuria, Nocturia, Urinary Incontinence, Urinary Frequency, Urinary Hesitance, Urinary Urgency, Voiding Freq/Small Amts, Freq UTI, Hx Renal/Bladder Calculi, Hx /Renal Surgery, Bladder Distension, Other - Reproductive: Female Reproductive:Female: absent: As Per HPI, Amenorrhea, Amenorrhea/ Control, Currently Menstual, Cycle <21 Days, Cycle >35 Days, Cycle Variable, Menses 1-7 Days, Menses >/= 8 Days, Menses Variable, Cycle > 4 Weeks Between, No Menses for 6 Months, Heavy Menses, Light Menses, Normal Menses, Spotting Between Cycles , S/P Hysterectomy, Menopausal, Post Menopausal, Premenarche, Abnormal Vaginal Bleeding, Dysmenorrhea, Dyspareunia, Genital Lesions, Genital Pruritis, Pelvic Pain, Prolapse Symptoms, Sexual Dysfunction, Vaginal Discharge, Vaginal Dryness , Vaginal Odor, Vaginal Pruritis, Other - Menstruation Menstruation: absent: As Per HPI, Amenorrhea, Amenorrhea/ Control, Currently Menstual, Cycle <21 Days, Cycle >35 Days, Cycle Variable, Menses 1-7 Days, Menses >/= 8 Days, Menses Variable, Cycle > 4 Weeks Between, No Menses for 6 Months, Heavy Menses, Light Menses, Normal Menses, Spotting Between Cycles , S/P Hysterectomy, Menopausal, Post Menopausal, Premenarche, Abnormal Vaginal Bleeding, Dysmenorrhea, Other - Musculoskeletal Musculoskeletal: absent: As Per HPI, Abnormal Gait, Arthralgias, Atrophy, Back Pain, Deformity, Joint Swelling, Limited Range of Motion, Loss of Height, Muscle Cramps, Muscle Weakness, Myalgias, Neck Pain, Numbness, Radiating Pain into Limb, Stiffness, Tingling, Other - Integumentary Integumentary: absent: As Per HPI, Acne, Alopecia, Bleeding Lesions, Change in Hair, Change in Nails, Change in Pigmentation, Changing Lesions, Dry Skin, Erythema, Furuncle, Hirsutism, Lesions, New Lesions, Non-Healing Lesions, Photosensitivity, Pruritus, Rash, Skin Pain, Skin Ulcer, Sores, Striae, Swelling , Unusual Bruising, Wounds, Jaundice, Other - Neurological Neurological: absent: As Per HPI, Abnormal Gait, Abnormal Hearing, Abnormal Movements, Abnormal Speech, Behavioral Changes, Burning Sensations, Confusion, Convulsions, Disequilibrium, Dizziness, Numbness, Focal Weakness, Frequent Falls , Headaches, Lack of Coordination, Loss of Vision, Memory Loss, Paresthesias, Radicular Pain, Restless Legs, Sensory Deficit, Syncope, Tingling, Tremor, Vertigo, Weakness, Other Visual Disturbances, Other - Psychiatric Psychiatric: absent: As Per HPI, Abnormal Sleep Pattern, Anhedonia, Anxiety, Auditory Hallucinations, Behavioral Changes, Change in Appetite, Change in Libido, Confusion, Depression, Difficulty Concentrating, Hallucinations, Homicidal Ideation, Hopelessness, Irritability, Memory Loss, Mood Swings, Panic Attacks, Paranoia, Suicidal Ideation, Visual Hallucinations, Tactile Hallucinations, Other - Endocrine Endocrine: absent: As Per HPI, Change in Body Appearance, Change in Libido, Cold Intolorance, Deepening of Voice, Excessive Sweating, Fatigue, Flushing, Heat Intolorance, Increase in Ring/Shoe/Hat Size, Palpitations, Polydipsia, Polyphagia, Polyuria, Other - Hematologic/Lymphatic Hematologic: absent: As Per HPI, Easy Bleeding, Easy Bruising, Lymphadenopathy, Other Past Patient History - Infectious Disease Hx of Infectious Diseases: None - Past Medical History & Family History Past Medical History?: Yes - Past Social History Smoking Status: Never Smoked - CARDIAC Hx Cardiac Disorders: No - PULMONARY Hx Respiratory Disorders: No - NEUROLOGICAL Hx Neurological Disorder: No - HEENT Hx HEENT Problems: No - RENAL Hx Chronic Kidney Disease: No - ENDOCRINE/METABOLIC Hx Endocrine Disorders: No - HEMATOLOGICAL/ONCOLOGICAL Hx Blood Disorders: No - INTEGUMENTARY Hx Dermatological Problems: No - MUSCULOSKELETAL/RHEUMATOLOGICAL Hx Musculoskeletal Disorders: No Hx Arthritis: No Hx Falls: No - GASTROINTESTINAL Hx Gastrointestinal Disorders: No - GENITOURINARY/GYNECOLOGICAL Hx Genitourinary Disorders: No - PSYCHIATRIC Hx Psychophysiologic Disorder: No Hx Substance Use: No - SURGICAL HISTORY Hx Surgeries: No - ANESTHESIA Hx Anesthesia: No Hx Anesthesia Reactions: No Hx Malignant Hyperthermia: No Has any member of the family had a problem w/ anesthesia?: No Meds Allergies/Adverse Reactions: Allergies Allergy/AdvReac Type Severity Reaction Status Date / Time No Known Allergies Allergy Verified 12/21/16 06:56 - Medications Medications: Current Medications Acetaminophen (Tylenol 325mg Tab) 650 mg PO Q6 PRN PRN Reason: Fever >100.4 F Last Admin: 12/21/16 14:50 Dose: 650 mg Ceftriaxone Sodium (Rocephin Iv 1 Gm Duplex) 50 mls @ 100 mls/hr IVPB DAILY [facility] Last Admin: 12/22/16 10:11 Dose: 100 mls/hr Metoprolol Tartrate (Lopressor) 25 mg PO BID [facility] Physical Exam - Constitutional Appears: Non-toxic, Cachectic, Chronically Ill - Head Exam Head Exam: ATRAUMATIC, NORMAL INSPECTION, NORMOCEPHALIC - Eye Exam Eye Exam: PERRL. absent: Scleral icterus - ENT Exam ENT Exam: Mucous Membranes Dry, Normal External Ear Exam, Normal Oropharynx - Neck Exam Neck exam: Negative for: Lymphadenopathy, Thyromegaly - Respiratory Exam Respiratory Exam: Decreased Breath Sounds, Rhonchi - Cardiovascular Exam Cardiovascular Exam: REGULAR RHYTHM, +S1, +S2 - GI/Abdominal Exam GI & Abdominal Exam: Diminished Bowel Sounds, Soft. absent: Tenderness - Rectal Exam Rectal Exam: Deferred - Exam Exam: NORMAL INSPECTION - Extremities Exam Extremities exam: Positive for: pedal pulses present. Negative for: calf tenderness, pedal edema, tenderness - Back Exam Back exam: absent: CVA tenderness (L), CVA tenderness (R), paraspinal tenderness - Neurological Exam Neurological exam: Alert, CN II-XII Intact, Oriented x3, Reflexes Normal - Psychiatric Exam Psychiatric exam: Normal Mood - Skin Skin Exam: Dry, Intact Results - Vital Signs Recent Vital Signs: Last Vital Signs Temp 98.4 F 12/22/16 07:59 Pulse 89 12/22/16 08:38 Resp 20 12/22/16 07:59 BP 127/61 12/22/16 07:59 Pulse Ox 97 12/22/16 07:59 - Labs Result Diagrams: 12/23/16 06:38 12/23/16 06:38 Labs: Laboratory Results - last 24 hr 12/21/16 12/21/16 12/21/16 14:09 18:03 22:51 WBC RBC Hgb Hct MCV MCH MCHC RDW Plt Count MPV Lactic Acid 3.4 H 5.7 H* Urine Color [place] Urine Clarity Clear Urine pH 7.0 Ur Specific [place] 1.046 H Urine Protein 1+ H Urine Glucose (UA) Normal Urine Ketones Trace Urine Blood Negative Urine Nitrate Negative Urine Bilirubin Negative Urine Urobilinogen 4.0 H Ur Leukocyte Esterase 1+ H Urine WBC (Auto) 4 Urine RBC (Auto) 2 Ur Squamous Epith Cells 2 Blood Type Antibody Screen 12/21/16 12/22/16 12/22/16 22:51 00:31 06:23 WBC 11.7 H RBC 2.88 L Hgb 7.3 L Hct 23.2 L MCV 80.6 L MCH 25.3 L MCHC 31.4 L RDW 21.1 H Plt Count 381 MPV 7.7 Lactic Acid 5.0 H* Urine Color Urine Clarity Urine pH Ur Specific [place] Urine Protein Urine Glucose (UA) Urine Ketones Urine Blood Urine Nitrate Urine Bilirubin Urine Urobilinogen Ur Leukocyte Esterase Urine WBC (Auto) Urine RBC (Auto) Ur Squamous Epith Cells Blood Type B POSITIVE Antibody Screen Negative Assessment & Plan (1) Anemia Status: Acute (2) Colonic thickening Status: Acute (3) Leukocytosis Status: Acute (4) Lymphadenopathy Status: Acute (5) Malaise and fatigue Status: Acute - Assessment and Plan (Free Text) Assessment: R/O INFILTRATING CANCER, OCCULT INFECTION, ABSCESS CHECK CULTURES CONT EMOPIRIC IV ANTIBIOTICS
--- NOTE | 2016-12-22 15:01 | CARD ---
APPROVED REPORT EKG Measurement Heart [id number] <Conclusion> Ectopic atrial tachcyardia Abnormal ECG
[2016-12-22 15:12] LABS: CARCINOEMBRYONIC ANTIGEN 2.5 ng/mL (0-3.0)
[2016-12-22 15:45] LABS: FOLATE 13.3 ng/mL
--- NOTE | 2016-12-22 19:13 | CARD ---
APPROVED REPORT EXAM: Two-dimensional and M-mode echocardiogram with Doppler and color Doppler. Other Information Quality : GoodRhythm : NSR INDICATION TACHYCARDIA M-Mode DIMENSIONS RVDd2.43 (2.1-3.2cm)Left Atrium (MM)3.70 (2.5-4.0cm) IVSd0.79 (0.7-1.1cm)Aortic Root2.98 (2.2-3.7cm) LVDd4.74 (4.0-5.6cm)Aortic Cusp Exc.2.16 (1.5-2.0cm) PWd0.73 (0.7-1.1cm)FS (%) 59 % LVDs1.94 (2.0-3.8cm)LVEF (%)89 (>50%) Mitral Valve MV E Zlyshlsv65.6cm/sMV A Dolgxbos13.1cm/sE/A ratio0.8 TDI E/Lateral E'0.0E/Medial E'0.0 Tricuspid Valve TR Peak [id number]/sTR Peak Gr.[id number] LEFT VENTRICLE The left ventricle is normal size. There is normal left ventricular wall thickness. The left ventricular function is normal. The left ventricular ejection fraction is within the normal range. No regional wall motion abnormalities noted. Indtermiante due to s tachycardia No left ventricle thrombus noted on this study. There is no ventricular septal defect visualized. There is no left ventricular aneurysm. There is no mass noted in the left ventricle. RIGHT VENTRICLE The right ventricle is normal size. There is normal right ventricular wall thickness. The right ventricular systolic function is normal. ATRIA The left atrium size is normal. The right atrium size is normal. The interatrial septum is intact with no evidence for an atrial septal defect. AORTIC VALVE The aortic valve is normal in structure and function. No aortic regurgitation is present. There is no aortic valvular stenosis. There is no aortic valvular vegetation. MITRAL VALVE The mitral valve is normal in structure and function. There is no evidence of mitral valve prolapse. There is no mitral valve stenosis. There is no mitral valve regurgitation noted. TRICUSPID VALVE The tricuspid valve is normal in structure and function. There is mild tricuspid valve regurgitation noted. Peak velocity across the valve is 3.2 m/sec, corresponding to a peak gradient of 41 mm Hg and an estimated pulmonary artery systolic velocity of 45 mm Hg. There is no tricuspid valve prolapse or vegetation. There is no tricuspid valve stenosis. PULMONIC VALVE The pulmonary valve is normal in structure and function. There is no pulmonic valvular regurgitation. There is no pulmonic valvular stenosis. GREAT VESSELS The aortic root is normal in size. The ascending aorta is normal in size. The pulmonary artery is normal. The IVC is normal in size and collapses >50% with inspiration. PERICARDIAL EFFUSION The pericardium appears normal. There is no pleural effusion. <Conclusion> There is mild tricuspid valve regurgitation noted. Peak velocity across the valve is 3.2 m/sec, corresponding to a peak gradient of 41 mm Hg and an estimated pulmonary artery systolic velocity of 45 mm Hg. The left ventricular function is normal. The left ventricular ejection fraction is within the normal range About 65%
[2016-12-23 07:37] LABS: CHLORIDE 103 mmol/L (98-107); SODIUM 140 mmol/L (132-148)
[2016-12-23 07:38] LABS: POTASSIUM 3.8 mmol/L (3.6-5.2)
[2016-12-23 07:40] LABS: CARBON DIOXIDE 25 mmol/L (22-30); GFR AFRICAN-AMERICAN > 60
[2016-12-23 07:41] LABS: BLOOD UREA NITROGEN 6 mg/dL (7-17); CALCIUM 9.1 mg/dl (8.6-10.4); GLUCOSE,RANDOM 76 mg/dL (65-105)
[2016-12-23 07:58] LABS: HEMATOCRIT 27.6 % (34.0-47.0); MEAN CELL VOLUME 81.1 fL (81.0-99.0); MEAN CORPUSCULAR HEMOGLOBIN 25.6 pg (27.0-31.0); MEAN CORPUSCULAR HGB CONC 31.6 g/dL (33.0-37.0); MEAN PLATELET VOLUME 8.2 fL (7.2-11.7); RED CELL DISTRIBUTION WIDTH 21.4 % (11.5-14.5); WHITE BLOOD COUNT 13.9 K/uL (4.8-10.8)
[2016-12-23 09:35] LABS: EOS # 0.3 K/uL (0.0-0.7); LYMPH # 2.2 K/uL (1.0-4.3); MONO # 2.2 K/uL (0.0-0.8)
[2016-12-23] MEDS: Lactated Ringer's 1,000 ML IV SCH ×2 (09:44→18:32)
[2016-12-23] MEDS: cefTRIAXone IV 1 gm in Dextros 50 ML IVPB SCH (09:45)
--- NOTE | 2016-12-23 11:42 | CP.PCM.PN ---
Subjective - Date & Time of Evaluation Date of Evaluation: 12/22/16 Time of Evaluation: 11:00 - Subjective Subjective: Feeling better Objective - Vital Signs/Intake and Output Vital Signs (last 24 hours): Temp Pulse Resp BP Pulse Ox 97.6 F 113 H 20 130/66 96 12/23/16 07:10 12/23/16 08:38 12/23/16 07:10 12/23/16 09:46 12/23/16 07:10 Intake and Output: 12/23/16 12/23/16 06:59 18:59 Intake Total 625 50 Balance 625 50 - Medications Medications: Current Medications Acetaminophen (Tylenol 325mg Tab) 650 mg PO Q6 PRN PRN Reason: Fever >100.4 F Last Admin: 12/21/16 14:50 Dose: 650 mg Ceftriaxone Sodium (Rocephin Iv 1 Gm Duplex) 50 mls @ 100 mls/hr IVPB DAILY [facility] Last Admin: 12/23/16 09:45 Dose: 100 mls/hr Lactated Ringer's (Lactated Ringer's) 1,000 mls @ 100 mls/hr IV .Q10H [facility] Last Admin: 12/23/16 09:44 Dose: 100 mls/hr Metoprolol Tartrate (Lopressor) 25 mg PO BID [facility] Last Admin: 12/23/16 09:46 Dose: 25 mg - Labs Labs: 12/23/16 06:38 12/23/16 06:38 PT 16.0 SECONDS (9.7-12.2) H 12/21/16 07:44 INR 1.4 12/21/16 07:44 APTT 37 SECONDS (21-34) H 12/21/16 07:44 - Head Exam Head Exam: ATRAUMATIC - Eye Exam Eye Exam: Normal appearance - ENT Exam ENT Exam: Mucous Membranes Dry - Respiratory Exam Respiratory Exam: NORMAL BREATHING PATTERN - Cardiovascular Exam Cardiovascular Exam: +S1, +S2 - GI/Abdominal Exam GI & Abdominal Exam: Normal Bowel Sounds - Extremities Exam Extremities Exam: Normal Inspection Assessment and Plan (1) Anemia Assessment & Plan: elevated ferritin consistent with anemia of chronic disease will transfuse 2U PRBC Status: Acute (2) Lymphadenopathy Assessment & Plan: surgical evaluation for excisional lymph node biopsy Status: Acute (3) Colonic thickening Assessment & Plan: may need GI evaluation at some point Status: Acute (4) Leukocytosis Assessment & Plan: ?reactive Status: Acute
[2016-12-23] MEDS ORDERED: Midazolam 2 MG/2 ML VIAL ONE (13:09)
[2016-12-23] MEDS ORDERED: Propofol 10 mg/ml Inj (20 ML) ONE (13:09)
[2016-12-23] MEDS ORDERED: Lidocaine 2% w Epi 1:100,000 Inj IJ ONE (13:10)
[2016-12-23] MEDS ORDERED: Lactated Ringer's 1,000 ML IV ONE (13:15)
[2016-12-23] MEDS ORDERED: Oxycodone/Acetaminophen 5/325 mg Tab PO PRN (13:52)
--- NOTE | 2016-12-23 13:57 | PCM.SURG1 ---
Surgeon's Initial Post Op Note - Surgeon's Notes Surgeon: Dr. Heredia Newspaper Clipper: Chris PGY2, Jessenia PGY1 Type of Anesthesia: General Mask Pre-Operative Diagnosis: Bilateral inguinal lymphadenopathy Operative Findings: see operative report Post-Operative Diagnosis: Bilateral inguinal lymphadenopathy Operation Performed: Excisional biopsy of L ingunial lymph node Specimen/Specimens Removed: L inguinal lymph node Estimated Blood Loss: EBL {In ML}: 5 Blood Products Given: N/A Drains Used: No Drains Post-Op Condition: Good Date of Surgery/Procedure: 12/23/16 Time of Surgery/Procedure: 13:56
--- NOTE | 2016-12-23 14:22 | CP.PCM.PN ---
Subjective - Date & Time of Evaluation Date of Evaluation: 12/23/16 Time of Evaluation: 14:22 - Subjective Subjective: s/p Excisional biopsy of L ingunial lymph node Dx; abd/pelvic LAD, LE edema, SOB, fatigue, Objective - Vital Signs/Intake and Output Vital Signs (last 24 hours): Temp Pulse Resp BP Pulse Ox 98.4 F 98 H 22 118/58 L 99 12/23/16 13:52 12/23/16 13:52 12/23/16 13:52 12/23/16 13:52 12/23/16 13:52 Intake and Output: 12/23/16 12/23/16 06:59 18:59 Intake Total 625 50 Balance 625 50 - Medications Medications: Current Medications Acetaminophen (Tylenol 325mg Tab) 650 mg PO Q6 PRN PRN Reason: Fever >100.4 F Last Admin: 12/21/16 14:50 Dose: 650 mg Ceftriaxone Sodium (Rocephin Iv 1 Gm Duplex) 50 mls @ 100 mls/hr IVPB DAILY [facility] Last Admin: 12/23/16 09:45 Dose: 100 mls/hr Lactated Ringer's (Lactated Ringer's) 1,000 mls @ 100 mls/hr IV .Q10H [facility] Last Admin: 12/23/16 09:44 Dose: 100 mls/hr Metoprolol Tartrate (Lopressor) 25 mg PO BID [facility] Last Admin: 12/23/16 09:46 Dose: 25 mg Morphine Sulfate (Morphine) 1 mg IVP Q10M PRN PRN Reason: Pain, moderate (4-7) Oxycodone/Acetaminophen (Percocet 5/325 Mg Tab) 1 tab PO Q4H PRN PRN Reason: Pain, moderate (4-7) Stop: 12/26/16 13:53 - Labs Labs: 12/23/16 06:38 12/23/16 06:38 PT 16.0 SECONDS (9.7-12.2) H 12/21/16 07:44 INR 1.4 12/21/16 07:44 APTT 37 SECONDS (21-34) H 12/21/16 07:44 - Constitutional Appears: Chronically Ill - Head Exam Head Exam: ATRAUMATIC, NORMAL INSPECTION, NORMOCEPHALIC - Eye Exam Eye Exam: EOMI, Normal appearance, PERRL - ENT Exam ENT Exam: Mucous Membranes Moist - Respiratory Exam Respiratory Exam: Clear to Ausculation Bilateral. absent: Rales, Wheezes - Cardiovascular Exam Cardiovascular Exam: Tachycardia, REGULAR RHYTHM, +S1, +S2. absent: Murmur - Extremities Exam Extremities Exam: Pedal Edema Assessment and Plan - Assessment and Plan (Free Text) Assessment: 76 y/o woman with lymphadenopathy and suspicion for lymphoma w/u and heme eval in progress > Now s/p L. 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 DVT prophylaxis.
--- NOTE | 2016-12-23 17:18 | CP.PCM.PN ---
Subjective - Date & Time of Evaluation Date of Evaluation: 12/23/16 Time of Evaluation: 10:00 - Subjective Subjective: s/p LN Bx suspicious for lymphoma cultures pending empirric rx renewed Objective - Vital Signs/Intake and Output Vital Signs (last 24 hours): Temp Pulse Resp BP Pulse Ox 97.8 F 114 H 20 136/72 97 12/23/16 15:32 12/23/16 15:32 12/23/16 15:32 12/23/16 15:32 12/23/16 15:32 Intake and Output: 12/23/16 12/23/16 06:59 18:59 Intake Total 625 50 Balance 625 50 - Medications Medications: Current Medications Acetaminophen (Tylenol 325mg Tab) 650 mg PO Q6 PRN PRN Reason: Fever >100.4 F Last Admin: 12/21/16 14:50 Dose: 650 mg Ceftriaxone Sodium (Rocephin Iv 1 Gm Duplex) 50 mls @ 100 mls/hr IVPB DAILY [facility] Last Admin: 12/23/16 09:45 Dose: 100 mls/hr Lactated Ringer's (Lactated Ringer's) 1,000 mls @ 100 mls/hr IV .Q10H [facility] Last Admin: 12/23/16 09:44 Dose: 100 mls/hr Metoprolol Tartrate (Lopressor) 25 mg PO BID [facility] Last Admin: 12/23/16 09:46 Dose: 25 mg Morphine Sulfate (Morphine) 1 mg IVP Q10M PRN PRN Reason: Pain, moderate (4-7) Oxycodone/Acetaminophen (Percocet 5/325 Mg Tab) 1 tab PO Q4H PRN PRN Reason: Pain, moderate (4-7) Stop: 12/26/16 13:53 - Labs Labs: 12/23/16 06:38 12/23/16 06:38 PT 16.0 SECONDS (9.7-12.2) H 12/21/16 07:44 INR 1.4 12/21/16 07:44 APTT 37 SECONDS (21-34) H 12/21/16 07:44 - Constitutional Appears: Non-toxic, Chronically Ill - Head Exam Head Exam: NORMOCEPHALIC - Eye Exam Eye Exam: PERRL. absent: Scleral icterus - ENT Exam ENT Exam: Mucous Membranes Dry - Neck Exam Neck Exam: absent: Lymphadenopathy - Respiratory Exam Respiratory Exam: Decreased Breath Sounds - Cardiovascular Exam Cardiovascular Exam: REGULAR RHYTHM - GI/Abdominal Exam GI & Abdominal Exam: Distended, Soft - Rectal Exam Rectal Exam: Deferred Assessment and Plan (1) Anemia Status: Acute (2) Colonic thickening Status: Acute (3) Leukocytosis Status: Acute (4) Lymphadenopathy Status: Acute (5) Malaise and fatigue Status: Acute
--- NOTE | 2016-12-23 17:55 | CP.PCM.PN ---
Subjective - Date & Time of Evaluation Date of Evaluation: 12/23/16 Time of Evaluation: 17:55 - Subjective Subjective: pt feels weeke c/o od cough all night Objective - Vital Signs/Intake and Output Vital Signs (last 24 hours): Temp Pulse Resp BP Pulse Ox 97.8 F 114 H 20 136/72 97 12/23/16 15:32 12/23/16 15:32 12/23/16 15:32 12/23/16 15:32 12/23/16 15:32 Intake and Output: 12/23/16 12/23/16 06:59 18:59 Intake Total 625 50 Balance 625 50 - Medications Medications: Current Medications Acetaminophen (Tylenol 325mg Tab) 650 mg PO Q6 PRN PRN Reason: Fever >100.4 F Last Admin: 12/21/16 14:50 Dose: 650 mg Furosemide (Lasix) 40 mg IVP DAILY [facility] Ceftriaxone Sodium (Rocephin Iv 1 Gm Duplex) 50 mls @ 100 mls/hr IVPB DAILY [facility] Last Admin: 12/23/16 09:45 Dose: 100 mls/hr Lactated Ringer's (Lactated Ringer's) 1,000 mls @ 100 mls/hr IV .Q10H [facility] Last Admin: 12/23/16 09:44 Dose: 100 mls/hr Metoprolol Tartrate (Lopressor) 25 mg PO BID [facility] Last Admin: 12/23/16 09:46 Dose: 25 mg Morphine Sulfate (Morphine) 1 mg IVP Q10M PRN PRN Reason: Pain, moderate (4-7) Oxycodone/Acetaminophen (Percocet 5/325 Mg Tab) 1 tab PO Q4H PRN PRN Reason: Pain, moderate (4-7) Stop: 12/26/16 13:53 Potassium Chloride (Potassium Chloride Oral Soln) 20 meq PO DAILY [facility] - Labs Labs: 12/23/16 06:38 12/23/16 06:38 PT 16.0 SECONDS (9.7-12.2) H 12/21/16 07:44 INR 1.4 12/21/16 07:44 APTT 37 SECONDS (21-34) H 12/21/16 07:44 - Constitutional Appears: Non-toxic - Head Exam Head Exam: NORMAL INSPECTION - Eye Exam Eye Exam: Normal appearance Pupil Exam: NORMAL ACCOMODATION - ENT Exam ENT Exam: Normal Exam - Neck Exam Neck Exam: Full ROM - Respiratory Exam Respiratory Exam: Decreased Breath Sounds - Cardiovascular Exam Cardiovascular Exam: REGULAR RHYTHM - GI/Abdominal Exam GI & Abdominal Exam: Normal Bowel Sounds - Rectal Exam Rectal Exam: NORMAL INSPECTION - Back Exam Back Exam: NORMAL INSPECTION - Neurological Exam Neurological Exam: Alert, Awake, Oriented x3 - Psychiatric Exam Psychiatric exam: Normal Affect - Skin Skin Exam: Pallor Assessment and Plan - Assessment and Plan (Free Text) Assessment: ac cough aneamia generalised weekness cardiac arrythmia Plan: pt add lasix
[2016-12-23] MEDS: Potassium Chloride 20 mEq/15 ml LIQ UD PO SCH (18:28)
[2016-12-23] MEDS: Vitamin B Complex/Vitamin C Tab PO SCH (18:28)
--- NOTE | 2016-12-23 23:39 | OP ---
PROCEDURE DATE: 12/23/2016 PREOPERATIVE DIAGNOSIS: Generalized lymphadenopathy, suspected lymphoma. POSTOPERATIVE DIAGNOSIS: Generalized lymphadenopathy, suspected lymphoma. PROCEDURE CARRIED OUT: Left femoral node biopsy. SURGEON: Dr. Heredia. WEB UI DESIGNER: Dr. Mcgrath and Dr. Guaman. ANESTHESIA ADMINISTERED BY: Dr. Devine. The patient is an older, middle-aged woman, presents with a variety of problems, anemia, multiple lymph nodes throughout her body, retroperitoneum, including an accessible lymph node in the left groin. OPERATIVE FINDINGS: An entire lymph node approximately 3 cm in size was removed. Subcuticular closure carried down the skin. DESCRIPTION OF PROCEDURE: The patient was given local anesthesia as well as intravenous sedation. An incision was made directly over the lymph node, which was excised. Lymphatic channels were ligated and the procedure was terminated after closure of the skin with a subcuticular closure. The operation carried out, left femoral node biopsy. Paco Heredia Jr., MD
[2016-12-24] MEDS: Lactated Ringer's 1,000 ML IV SCH ×2 (05:01→15:30)
[2016-12-24 07:24] LABS: HEMATOCRIT 25.2 % (34.0-47.0); MEAN CELL VOLUME 81.6 fL (81.0-99.0); MEAN CORPUSCULAR HEMOGLOBIN 25.8 pg (27.0-31.0); MEAN CORPUSCULAR HGB CONC 31.6 g/dL (33.0-37.0); MEAN PLATELET VOLUME 8.1 fL (7.2-11.7); PLATELET COUNT 339 K/uL (130-400); RED CELL DISTRIBUTION WIDTH 21.1 % (11.5-14.5); WHITE BLOOD COUNT 12.7 K/uL (4.8-10.8)
--- NOTE | 2016-12-24 08:40 | CP.PCM.PN ---
Subjective - Date & Time of Evaluation Date of Evaluation: 12/24/16 Time of Evaluation: 08:37 - Subjective Subjective: Patient was seen and examined at bedside in no acute distress. Patient was laying comfortably in bed. She has no complaints, denies nausea and vomiting. Patient reports having a normal BM yesterday. 12 point review of systems otherwise negative. Objective - Vital Signs/Intake and Output Vital Signs (last 24 hours): Temp Pulse Resp BP Pulse Ox 98.6 F 95 H 20 141/62 96 12/23/16 23:40 12/24/16 01:40 12/23/16 23:40 12/23/16 23:40 12/23/16 23:40 Intake and Output: 12/24/16 12/24/16 06:59 18:59 Intake Total 1040 Balance 1040 - Medications Medications: Current Medications Acetaminophen (Tylenol 325mg Tab) 650 mg PO Q6 PRN PRN Reason: Fever >100.4 F Last Admin: 12/21/16 14:50 Dose: 650 mg Furosemide (Lasix) 40 mg IVP DAILY [facility] Last Admin: 12/23/16 18:28 Dose: 40 mg Ceftriaxone Sodium (Rocephin Iv 1 Gm Duplex) 50 mls @ 100 mls/hr IVPB DAILY [facility] Last Admin: 12/23/16 09:45 Dose: 100 mls/hr Lactated Ringer's (Lactated Ringer's) 1,000 mls @ 100 mls/hr IV .Q10H [facility] Last Admin: 12/24/16 05:01 Dose: 100 mls/hr Metoprolol Tartrate (Lopressor) 25 mg PO BID [facility] Last Admin: 12/23/16 18:21 Dose: 25 mg Morphine Sulfate (Morphine) 1 mg IVP Q10M PRN PRN Reason: Pain, moderate (4-7) Oxycodone/Acetaminophen (Percocet 5/325 Mg Tab) 1 tab PO Q4H PRN PRN Reason: Pain, moderate (4-7) Stop: 12/26/16 13:53 Potassium Chloride (Potassium Chloride Oral Soln) 20 meq PO DAILY [facility] Last Admin: 12/23/16 18:28 Dose: 20 meq Vitamin B Complex/Vitamin C (Berocca) 1 tab PO DAILY [facility] Last Admin: 12/23/16 18:28 Dose: 1 tab - Labs Labs: 12/24/16 07:10 12/23/16 06:38 PT 16.0 SECONDS (9.7-12.2) H 12/21/16 07:44 INR 1.4 12/21/16 07:44 APTT 37 SECONDS (21-34) H 12/21/16 07:44 - Head Exam Head Exam: ATRAUMATIC, NORMAL INSPECTION - Eye Exam Eye Exam: EOMI - ENT Exam ENT Exam: Mucous Membranes Moist - Respiratory Exam Respiratory Exam: Decreased Breath Sounds. absent: Rhonchi, Wheezes, Respiratory Distress - Cardiovascular Exam Cardiovascular Exam: +S1, +S2. absent: Bradycardia, Tachycardia - GI/Abdominal Exam GI & Abdominal Exam: Soft. absent: Distended, Tenderness - Extremities Exam Extremities Exam: absent: Pedal Edema - Neurological Exam Neurological Exam: Alert, Awake - Psychiatric Exam Psychiatric exam: Normal Affect, Normal Mood - Skin Skin Exam: Dry, Normal Color, Warm Additional comments: s/p left inguinal lymph node biopsy: dressing clean, dry, intact Assessment and Plan - Assessment and Plan (Free Text) Assessment: 76 year old female s/p left inguinal lymph node biopsy. POD#1. - Dressing to be changed tomorrow. - No surgical intervention at this time. - Continue pain control and antibiotics. - Continue medical management.
[2016-12-24 08:56] LABS: BASO # 0.1 K/uL (0.0-0.2); EOS # 0.3 K/uL (0.0-0.7); MONO # 2.7 K/uL (0.0-0.8)
[2016-12-24 08:59] LABS: NEUTROPHIL 67 % (50-75); TOTAL CELLS COUNTED 100
[2016-12-24] MEDS: Potassium Chloride 20 mEq/15 ml LIQ UD PO SCH (10:25)
[2016-12-24] MEDS: Vitamin B Complex/Vitamin C Tab PO SCH (10:25)
[2016-12-24] MEDS: cefTRIAXone IV 1 gm in Dextros 50 ML IVPB SCH (10:43)
--- NOTE | 2016-12-24 13:11 | CP.PCM.PN ---
Subjective - Date & Time of Evaluation Date of Evaluation: 12/24/16 Time of Evaluation: 13:08 - Subjective Subjective: feels better still leg edema s/p L. inguinal node biopsy done yesterday: reports pending Objective - Vital Signs/Intake and Output Vital Signs (last 24 hours): Temp Pulse Resp BP Pulse Ox 97.7 F 117 H 20 120/64 97 12/24/16 07:55 12/24/16 07:55 12/24/16 07:55 12/24/16 11:00 12/24/16 07:55 Intake and Output: 12/24/16 12/24/16 06:59 18:59 Intake Total 1040 Balance 1040 - Medications Medications: Current Medications Acetaminophen (Tylenol 325mg Tab) 650 mg PO Q6 PRN PRN Reason: Fever >100.4 F Last Admin: 12/21/16 14:50 Dose: 650 mg Furosemide (Lasix) 40 mg IVP DAILY [facility] Last Admin: 12/24/16 10:25 Dose: 40 mg Ceftriaxone Sodium (Rocephin Iv 1 Gm Duplex) 50 mls @ 100 mls/hr IVPB DAILY [facility] Last Admin: 12/24/16 10:43 Dose: 100 mls/hr Lactated Ringer's (Lactated Ringer's) 1,000 mls @ 100 mls/hr IV .Q10H [facility] Last Admin: 12/24/16 05:01 Dose: 100 mls/hr Metoprolol Tartrate (Lopressor) 25 mg PO BID [facility] Last Admin: 12/24/16 11:00 Dose: 25 mg Morphine Sulfate (Morphine) 1 mg IVP Q10M PRN PRN Reason: Pain, moderate (4-7) Oxycodone/Acetaminophen (Percocet 5/325 Mg Tab) 1 tab PO Q4H PRN PRN Reason: Pain, moderate (4-7) Stop: 12/26/16 13:53 Potassium Chloride (Potassium Chloride Oral Soln) 20 meq PO DAILY [facility] Last Admin: 12/24/16 10:25 Dose: 20 meq Vitamin B Complex/Vitamin C (Berocca) 1 tab PO DAILY [facility] Last Admin: 12/24/16 10:25 Dose: 1 tab - Labs Labs: 12/24/16 07:10 12/23/16 06:38 PT 16.0 SECONDS (9.7-12.2) H 12/21/16 07:44 INR 1.4 12/21/16 07:44 APTT 37 SECONDS (21-34) H 12/21/16 07:44 - Constitutional Appears: Chronically Ill - Head Exam Head Exam: ATRAUMATIC, NORMAL INSPECTION, NORMOCEPHALIC - Eye Exam Eye Exam: EOMI, Normal appearance, PERRL - ENT Exam ENT Exam: Mucous Membranes Moist - Respiratory Exam Respiratory Exam: Clear to Ausculation Bilateral, Rales (bibasilar) - Cardiovascular Exam Cardiovascular Exam: REGULAR RHYTHM, +S1, +S2. absent: Murmur - Extremities Exam Extremities Exam: Pedal Edema - Neurological Exam Neurological Exam: Alert, Awake, Oriented x3 - Skin Skin Exam: Normal Color, Warm Assessment and Plan - Assessment and Plan (Free Text) Assessment: 76 y/o woman with lymphadenopathy and suspicion for lymphoma w/u and heme eval in progress > Now s/p L. 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 DVT prophylaxis. Patient will need a detailed echo with strain rate imaging to eval LVEF prior to starting any cardiotoxic chemo if needed.
--- NOTE | 2016-12-24 13:13 | CP.PCM.PN ---
Subjective - Date & Time of Evaluation Date of Evaluation: 12/23/16 Time of Evaluation: 17:00 - Subjective Subjective: Feeling better s/p excisional LN biopsy Objective - Vital Signs/Intake and Output Vital Signs (last 24 hours): Temp Pulse Resp BP Pulse Ox 97.7 F 117 H 20 120/64 97 12/24/16 07:55 12/24/16 07:55 12/24/16 07:55 12/24/16 11:00 12/24/16 07:55 Intake and Output: 12/24/16 12/24/16 06:59 18:59 Intake Total 1040 Balance 1040 - Medications Medications: Current Medications Acetaminophen (Tylenol 325mg Tab) 650 mg PO Q6 PRN PRN Reason: Fever >100.4 F Last Admin: 12/21/16 14:50 Dose: 650 mg Furosemide (Lasix) 40 mg IVP DAILY [facility] Last Admin: 12/24/16 10:25 Dose: 40 mg Ceftriaxone Sodium (Rocephin Iv 1 Gm Duplex) 50 mls @ 100 mls/hr IVPB DAILY [facility] Last Admin: 12/24/16 10:43 Dose: 100 mls/hr Lactated Ringer's (Lactated Ringer's) 1,000 mls @ 100 mls/hr IV .Q10H [facility] Last Admin: 12/24/16 05:01 Dose: 100 mls/hr Metoprolol Tartrate (Lopressor) 25 mg PO BID [facility] Last Admin: 12/24/16 11:00 Dose: 25 mg Morphine Sulfate (Morphine) 1 mg IVP Q10M PRN PRN Reason: Pain, moderate (4-7) Oxycodone/Acetaminophen (Percocet 5/325 Mg Tab) 1 tab PO Q4H PRN PRN Reason: Pain, moderate (4-7) Stop: 12/26/16 13:53 Potassium Chloride (Potassium Chloride Oral Soln) 20 meq PO DAILY [facility] Last Admin: 12/24/16 10:25 Dose: 20 meq Vitamin B Complex/Vitamin C (Berocca) 1 tab PO DAILY [facility] Last Admin: 12/24/16 10:25 Dose: 1 tab - Labs Labs: 12/24/16 07:10 12/23/16 06:38 PT 16.0 SECONDS (9.7-12.2) H 12/21/16 07:44 INR 1.4 12/21/16 07:44 APTT 37 SECONDS (21-34) H 12/21/16 07:44 - Head Exam Head Exam: ATRAUMATIC - Eye Exam Eye Exam: Normal appearance - ENT Exam ENT Exam: Mucous Membranes Dry - Respiratory Exam Respiratory Exam: NORMAL BREATHING PATTERN - Cardiovascular Exam Cardiovascular Exam: +S1, +S2 - GI/Abdominal Exam GI & Abdominal Exam: Normal Bowel Sounds - Extremities Exam Extremities Exam: Normal Inspection Assessment and Plan (1) Anemia Assessment & Plan: chronic disease s/p PRBC transfusion Status: Acute (2) Lymphadenopathy Assessment & Plan: s/p excisional LN biopsy f/u path Status: Acute (3) Colonic thickening Status: Acute (4) Leukocytosis Status: Acute
--- NOTE | 2016-12-24 13:14 | CP.PCM.PN ---
Subjective - Date & Time of Evaluation Date of Evaluation: 12/24/16 Time of Evaluation: 13:05 - Subjective Subjective: Feeling better Objective - Vital Signs/Intake and Output Vital Signs (last 24 hours): Temp Pulse Resp BP Pulse Ox 97.7 F 117 H 20 120/64 97 12/24/16 07:55 12/24/16 07:55 12/24/16 07:55 12/24/16 11:00 12/24/16 07:55 Intake and Output: 12/24/16 12/24/16 06:59 18:59 Intake Total 1040 Balance 1040 - Medications Medications: Current Medications Acetaminophen (Tylenol 325mg Tab) 650 mg PO Q6 PRN PRN Reason: Fever >100.4 F Last Admin: 12/21/16 14:50 Dose: 650 mg Furosemide (Lasix) 40 mg IVP DAILY [facility] Last Admin: 12/24/16 10:25 Dose: 40 mg Ceftriaxone Sodium (Rocephin Iv 1 Gm Duplex) 50 mls @ 100 mls/hr IVPB DAILY [facility] Last Admin: 12/24/16 10:43 Dose: 100 mls/hr Lactated Ringer's (Lactated Ringer's) 1,000 mls @ 100 mls/hr IV .Q10H [facility] Last Admin: 12/24/16 05:01 Dose: 100 mls/hr Metoprolol Tartrate (Lopressor) 25 mg PO BID [facility] Last Admin: 12/24/16 11:00 Dose: 25 mg Morphine Sulfate (Morphine) 1 mg IVP Q10M PRN PRN Reason: Pain, moderate (4-7) Oxycodone/Acetaminophen (Percocet 5/325 Mg Tab) 1 tab PO Q4H PRN PRN Reason: Pain, moderate (4-7) Stop: 12/26/16 13:53 Potassium Chloride (Potassium Chloride Oral Soln) 20 meq PO DAILY [facility] Last Admin: 12/24/16 10:25 Dose: 20 meq Vitamin B Complex/Vitamin C (Berocca) 1 tab PO DAILY [facility] Last Admin: 12/24/16 10:25 Dose: 1 tab - Labs Labs: 12/24/16 07:10 12/23/16 06:38 PT 16.0 SECONDS (9.7-12.2) H 12/21/16 07:44 INR 1.4 12/21/16 07:44 APTT 37 SECONDS (21-34) H 12/21/16 07:44 - Head Exam Head Exam: ATRAUMATIC - Eye Exam Eye Exam: Normal appearance - ENT Exam ENT Exam: Mucous Membranes Dry - Respiratory Exam Respiratory Exam: NORMAL BREATHING PATTERN - Cardiovascular Exam Cardiovascular Exam: +S1, +S2 - GI/Abdominal Exam GI & Abdominal Exam: Normal Bowel Sounds - Extremities Exam Extremities Exam: Pedal Edema Assessment and Plan (1) Anemia Assessment & Plan: chronic disease s/p PRBC transfusion Status: Acute (2) Lymphadenopathy Assessment & Plan: s/p excisional LN biopsy f/u path Status: Acute (3) Colonic thickening Status: Acute (4) Leukocytosis Status: Acute
--- NOTE | 2016-12-24 16:23 | CP.PCM.PN ---
Subjective - Date & Time of Evaluation Date of Evaluation: 12/24/16 Time of Evaluation: 16:21 - Subjective Subjective: WEEKE Objective - Vital Signs/Intake and Output Vital Signs (last 24 hours): Temp Pulse Resp BP Pulse Ox 99.5 F 102 H 20 146/69 100 12/24/16 15:39 12/24/16 15:39 12/24/16 15:39 12/24/16 15:39 12/24/16 15:39 Intake and Output: 12/24/16 12/24/16 06:59 18:59 Intake Total 1040 700 Balance 1040 700 - Medications Medications: Current Medications Acetaminophen (Tylenol 325mg Tab) 650 mg PO Q6 PRN PRN Reason: Fever >100.4 F Last Admin: 12/21/16 14:50 Dose: 650 mg Furosemide (Lasix) 40 mg IVP DAILY [facility] Last Admin: 12/24/16 10:25 Dose: 40 mg Ceftriaxone Sodium (Rocephin Iv 1 Gm Duplex) 50 mls @ 100 mls/hr IVPB DAILY [facility] Last Admin: 12/24/16 10:43 Dose: 100 mls/hr Lactated Ringer's (Lactated Ringer's) 1,000 mls @ 100 mls/hr IV .Q10H [facility] Last Admin: 12/24/16 05:01 Dose: 100 mls/hr Metoprolol Tartrate (Lopressor) 25 mg PO BID [facility] Last Admin: 12/24/16 11:00 Dose: 25 mg Morphine Sulfate (Morphine) 1 mg IVP Q10M PRN PRN Reason: Pain, moderate (4-7) Oxycodone/Acetaminophen (Percocet 5/325 Mg Tab) 1 tab PO Q4H PRN PRN Reason: Pain, moderate (4-7) Stop: 12/26/16 13:53 Potassium Chloride (Potassium Chloride Oral Soln) 20 meq PO DAILY [facility] Last Admin: 12/24/16 10:25 Dose: 20 meq Vitamin B Complex/Vitamin C (Berocca) 1 tab PO DAILY [facility] Last Admin: 12/24/16 10:25 Dose: 1 tab - Labs Labs: 12/24/16 07:10 12/23/16 06:38 PT 16.0 SECONDS (9.7-12.2) H 12/21/16 07:44 INR 1.4 12/21/16 07:44 APTT 37 SECONDS (21-34) H 12/21/16 07:44 - Constitutional Appears: Non-toxic - Head Exam Head Exam: ATRAUMATIC - Eye Exam Eye Exam: Normal appearance Pupil Exam: NORMAL ACCOMODATION - ENT Exam ENT Exam: Mucous Membranes Dry - Neck Exam Neck Exam: Full ROM - Respiratory Exam Respiratory Exam: NORMAL BREATHING PATTERN - Cardiovascular Exam Cardiovascular Exam: REGULAR RHYTHM - GI/Abdominal Exam GI & Abdominal Exam: Normal Bowel Sounds - Rectal Exam Rectal Exam: NORMAL INSPECTION - Back Exam Back Exam: NORMAL INSPECTION - Neurological Exam Neurological Exam: Awake, Normal Gait - Skin Skin Exam: Pallor Assessment and Plan - Assessment and Plan (Free Text) Assessment: ANEAMIA LYMPHADENOPATHY FEVER IMPROVED S/P LN EXSISION S/P TRANSFUSION Plan: REPEATE LAB BIGG
--- NOTE | 2016-12-24 17:33 | CP.PCM.PN ---
Subjective - Date & Time of Evaluation Date of Evaluation: 12/24/16 Time of Evaluation: 08:00 - Subjective Subjective: 76 year old female with no past medical history admitted with fatigue, found to have diffuse abdominal/pelvic lymphadenopathy concerning for malignancy. THe patient notes to her symptoms starting about 1 month ago and have slowly increased. A CT scan of the abdomen and pelvis revealed abdominal and pelvic lymphadenopathy and sigmoid colon thickening. wbc lactate elevated on admission- IV antibiotics started feeling better denies fever lactic acid level still elevated wbc coming down iv rx renewed concern for lymphoma/ infiltrating tumor with bowel involvement ? Objective - Vital Signs/Intake and Output Vital Signs (last 24 hours): Temp Pulse Resp BP Pulse Ox 99.5 F 102 H 20 146/69 100 12/24/16 15:39 12/24/16 15:39 12/24/16 15:39 12/24/16 15:39 12/24/16 15:39 Intake and Output: 12/24/16 12/24/16 06:59 18:59 Intake Total 1040 700 Balance 1040 700 - Medications Medications: Current Medications Acetaminophen (Tylenol 325mg Tab) 650 mg PO Q6 PRN PRN Reason: Fever >100.4 F Last Admin: 12/21/16 14:50 Dose: 650 mg Furosemide (Lasix) 40 mg IVP DAILY [facility] Last Admin: 12/24/16 10:25 Dose: 40 mg Ceftriaxone Sodium (Rocephin Iv 1 Gm Duplex) 50 mls @ 100 mls/hr IVPB DAILY [facility] Last Admin: 12/24/16 10:43 Dose: 100 mls/hr Lactated Ringer's (Lactated Ringer's) 1,000 mls @ 100 mls/hr IV .Q10H [facility] Last Admin: 12/24/16 05:01 Dose: 100 mls/hr Metoprolol Tartrate (Lopressor) 25 mg PO BID [facility] Last Admin: 12/24/16 11:00 Dose: 25 mg Morphine Sulfate (Morphine) 1 mg IVP Q10M PRN PRN Reason: Pain, moderate (4-7) Oxycodone/Acetaminophen (Percocet 5/325 Mg Tab) 1 tab PO Q4H PRN PRN Reason: Pain, moderate (4-7) Stop: 12/26/16 13:53 Potassium Chloride (Potassium Chloride Oral Soln) 20 meq PO DAILY [facility] Last Admin: 12/24/16 10:25 Dose: 20 meq Vitamin B Complex/Vitamin C (Berocca) 1 tab PO DAILY [facility] Last Admin: 12/24/16 10:25 Dose: 1 tab - Labs Labs: 12/24/16 07:10 12/23/16 06:38 PT 16.0 SECONDS (9.7-12.2) H 12/21/16 07:44 INR 1.4 12/21/16 07:44 APTT 37 SECONDS (21-34) H 12/21/16 07:44 - Constitutional Appears: Cachectic, Chronically Ill - Head Exam Head Exam: NORMOCEPHALIC - Eye Exam Eye Exam: PERRL. absent: Scleral icterus - ENT Exam ENT Exam: Mucous Membranes Dry - Neck Exam Neck Exam: absent: Lymphadenopathy - Respiratory Exam Respiratory Exam: Decreased Breath Sounds, Clear to Ausculation Bilateral - Cardiovascular Exam Cardiovascular Exam: REGULAR RHYTHM, +S1, +S2 - GI/Abdominal Exam GI & Abdominal Exam: Distended, Soft - Rectal Exam Rectal Exam: Deferred Assessment and Plan (1) Anemia Status: Acute (2) Colonic thickening Status: Acute (3) Leukocytosis Status: Acute (4) Lymphadenopathy Status: Acute (5) Malaise and fatigue Status: Acute
[2016-12-25] MEDS: Lactated Ringer's 1,000 ML IV SCH (01:15)
--- NOTE | 2016-12-25 08:16 | CP.PCM.PN ---
Subjective - Date & Time of Evaluation Date of Evaluation: 12/25/16 Time of Evaluation: 08:06 - Subjective Subjective: Surgery Pt s&e. NAEON. Denies F/C/N/V/D/CP/SOB. Dressing changed. Denies pain. Objective - Vital Signs/Intake and Output Vital Signs (last 24 hours): Temp Pulse Resp BP Pulse Ox 97.5 F L 80 20 121/64 97 12/24/16 23:40 12/24/16 23:40 12/24/16 23:40 12/24/16 23:40 12/24/16 23:40 Intake and Output: 12/25/16 12/25/16 06:59 18:59 Intake Total 1880 Balance 1880 - Medications Medications: Current Medications Acetaminophen (Tylenol 325mg Tab) 650 mg PO Q6 PRN PRN Reason: Fever >100.4 F Last Admin: 12/21/16 14:50 Dose: 650 mg Furosemide (Lasix) 40 mg IVP DAILY [facility] Last Admin: 12/24/16 10:25 Dose: 40 mg Ceftriaxone Sodium (Rocephin Iv 1 Gm Duplex) 50 mls @ 100 mls/hr IVPB DAILY [facility] Last Admin: 12/24/16 10:43 Dose: 100 mls/hr Lactated Ringer's (Lactated Ringer's) 1,000 mls @ 100 mls/hr IV .Q10H [facility] Last Admin: 12/25/16 01:15 Dose: Not Given Metoprolol Tartrate (Lopressor) 25 mg PO BID [facility] Last Admin: 12/24/16 18:09 Dose: 25 mg Morphine Sulfate (Morphine) 1 mg IVP Q10M PRN PRN Reason: Pain, moderate (4-7) Oxycodone/Acetaminophen (Percocet 5/325 Mg Tab) 1 tab PO Q4H PRN PRN Reason: Pain, moderate (4-7) Stop: 12/26/16 13:53 Potassium Chloride (Potassium Chloride Oral Soln) 20 meq PO DAILY [facility] Last Admin: 12/24/16 10:25 Dose: 20 meq Vitamin B Complex/Vitamin C (Berocca) 1 tab PO DAILY [facility] Last Admin: 12/24/16 10:25 Dose: 1 tab - Labs Labs: 12/24/16 07:10 12/23/16 06:38 PT 16.0 SECONDS (9.7-12.2) H 12/21/16 07:44 INR 1.4 12/21/16 07:44 APTT 37 SECONDS (21-34) H 12/21/16 07:44 - Constitutional Appears: No Acute Distress, Chronically Ill - Head Exam Head Exam: ATRAUMATIC, NORMAL INSPECTION, NORMOCEPHALIC - Eye Exam Eye Exam: EOMI, Normal appearance, PERRL Pupil Exam: NORMAL ACCOMODATION, PERRL - ENT Exam ENT Exam: Mucous Membranes Moist, Normal Exam - Neck Exam Neck Exam: Full ROM, Normal Inspection. absent: Lymphadenopathy - Respiratory Exam Respiratory Exam: Clear to Ausculation Bilateral, NORMAL BREATHING PATTERN - Cardiovascular Exam Cardiovascular Exam: REGULAR RHYTHM, +S1, +S2. absent: Murmur - GI/Abdominal Exam GI & Abdominal Exam: Soft, Normal Bowel Sounds. absent: Distended, Firm, Guarding, Rigid, Tenderness - Extremities Exam Extremities Exam: Full ROM, Normal Capillary Refill, Tenderness. absent: Normal Inspection Additional comments: b/l inguinal lymphadenopathy. L incision C/D/I. Dressing changed. Mild ecchymosis - Back Exam Back Exam: NORMAL INSPECTION - Neurological Exam Neurological Exam: Alert, Awake, CN II-XII Intact, Oriented x3 - Psychiatric Exam Psychiatric exam: Normal Affect, Normal Mood - Skin Skin Exam: Dry, Intact, Warm Assessment and Plan - Assessment and Plan (Free Text) Assessment: 76 year old female s/p left inguinal lymph node biopsy. POD#2. - No further surgical intervention at this time. - Continue medical management. -F/U path Will CHIO Heredia
[2016-12-25 08:20] LABS: HEMATOCRIT 24.5 % (34.0-47.0); MEAN CORPUSCULAR HEMOGLOBIN 25.7 pg (27.0-31.0); MEAN CORPUSCULAR HGB CONC 31.3 g/dL (33.0-37.0); MEAN PLATELET VOLUME 8.2 fL (7.2-11.7); RED CELL DISTRIBUTION WIDTH 21.4 % (11.5-14.5); WHITE BLOOD COUNT 11.1 K/uL (4.8-10.8)
[2016-12-25] MEDS: Vitamin B Complex/Vitamin C Tab PO SCH (09:30)
[2016-12-25] MEDS: Potassium Chloride 20 mEq/15 ml LIQ UD PO SCH (09:30)
[2016-12-25] MEDS: cefTRIAXone IV 1 gm in Dextros 50 ML IVPB SCH (09:33)
--- NOTE | 2016-12-25 11:16 | CP.PCM.PN ---
Subjective - Date & Time of Evaluation Date of Evaluation: 12/25/16 Time of Evaluation: 11:16 - Subjective Subjective: Events reviewed Objective - Vital Signs/Intake and Output Vital Signs (last 24 hours): Temp Pulse Resp BP Pulse Ox 98.2 F 114 H 20 106/64 97 12/25/16 07:10 12/25/16 07:10 12/25/16 07:10 12/25/16 09:29 12/25/16 07:10 Intake and Output: 12/25/16 12/25/16 06:59 18:59 Intake Total 1880 Balance 1880 - Medications Medications: Current Medications Acetaminophen (Tylenol 325mg Tab) 650 mg PO Q6 PRN PRN Reason: Fever >100.4 F Last Admin: 12/21/16 14:50 Dose: 650 mg Furosemide (Lasix) 40 mg IVP DAILY [facility] Last Admin: 12/25/16 09:29 Dose: 40 mg Ceftriaxone Sodium (Rocephin Iv 1 Gm Duplex) 50 mls @ 100 mls/hr IVPB DAILY [facility] Last Admin: 12/25/16 09:33 Dose: 100 mls/hr Metoprolol Tartrate (Lopressor) 25 mg PO BID [facility] Last Admin: 12/24/16 18:09 Dose: 25 mg Morphine Sulfate (Morphine) 1 mg IVP Q10M PRN PRN Reason: Pain, moderate (4-7) Oxycodone/Acetaminophen (Percocet 5/325 Mg Tab) 1 tab PO Q4H PRN PRN Reason: Pain, moderate (4-7) Stop: 12/26/16 13:53 Potassium Chloride (Potassium Chloride Oral Soln) 20 meq PO DAILY [facility] Last Admin: 12/25/16 09:30 Dose: 20 meq Vitamin B Complex/Vitamin C (Berocca) 1 tab PO DAILY [facility] Last Admin: 12/25/16 09:30 Dose: 1 tab - Labs Labs: 12/25/16 08:00 12/23/16 06:38 PT 16.0 SECONDS (9.7-12.2) H 12/21/16 07:44 INR 1.4 12/21/16 07:44 APTT 37 SECONDS (21-34) H 12/21/16 07:44 Assessment and Plan - Assessment and Plan (Free Text) Assessment: Assessment: 76 y/o woman with lymphadenopathy and suspicion for lymphoma w/u and heme eval in progress > Now s/p L. 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 DVT prophylaxis. Patient will need a detailed echo with strain rate imaging to eval LVEF prior to starting any cardiotoxic chemo if needed.
[2016-12-25 15:27] VITALS: O2SAT 97
--- NOTE | 2016-12-25 16:15 | CP.PCM.PN ---
Subjective - Date & Time of Evaluation Date of Evaluation: 12/25/16 Time of Evaluation: 16:16 - Subjective Subjective: Awake, alert, pleasant, out of bed, denies acute pain or distress. Objective - Vital Signs/Intake and Output Vital Signs (last 24 hours): Temp Pulse Resp BP Pulse Ox 98.5 F 107 H 20 135/65 97 12/25/16 15:52 12/25/16 15:52 12/25/16 15:52 12/25/16 15:52 12/25/16 15:00 Intake and Output: 12/25/16 12/25/16 06:59 18:59 Intake Total 1880 0 Balance 1880 0 - Medications Medications: Current Medications Acetaminophen (Tylenol 325mg Tab) 650 mg PO Q6 PRN PRN Reason: Fever >100.4 F Last Admin: 12/21/16 14:50 Dose: 650 mg Furosemide (Lasix) 40 mg IVP DAILY [facility] Last Admin: 12/25/16 09:29 Dose: 40 mg Ceftriaxone Sodium (Rocephin Iv 1 Gm Duplex) 50 mls @ 100 mls/hr IVPB DAILY [facility] Last Admin: 12/25/16 09:33 Dose: 100 mls/hr Metoprolol Tartrate (Lopressor) 25 mg PO BID [facility] Last Admin: 12/24/16 18:09 Dose: 25 mg Morphine Sulfate (Morphine) 1 mg IVP Q10M PRN PRN Reason: Pain, moderate (4-7) Oxycodone/Acetaminophen (Percocet 5/325 Mg Tab) 1 tab PO Q4H PRN PRN Reason: Pain, moderate (4-7) Stop: 12/26/16 13:53 Potassium Chloride (Potassium Chloride Oral Soln) 20 meq PO DAILY [facility] Last Admin: 12/25/16 09:30 Dose: 20 meq Vitamin B Complex/Vitamin C (Berocca) 1 tab PO DAILY [facility] Last Admin: 12/25/16 09:30 Dose: 1 tab - Labs Labs: 12/25/16 08:00 12/23/16 06:38 PT 16.0 SECONDS (9.7-12.2) H 12/21/16 07:44 INR 1.4 12/21/16 07:44 APTT 37 SECONDS (21-34) H 12/21/16 07:44 Assessment and Plan - Assessment and Plan (Free Text) Assessment: Patient is seen and examined with DR Gutierrez. Pleasant, alert, awake, denies pain or discomfort. Hemoglobin today is 7.7, v/s stable. Plan to discharge to [facility] and continue with iv antibiotics under DR Gutierrez service.
[2016-12-25 17:30] VITALS: BP 150/69; PULSE 118; RESP 18; TEMP 98.8
--- NOTE | 2016-12-26 09:37 | CARD ---
APPROVED REPORT EKG Measurement Heart [id number] <Conclusion> Sinus tachycardia with premature supraventricular complexes Otherwise normal ECG
--- NOTE | 2017-01-13 03:15 | DS ---
HISTORY AND HOSPITAL COURSE: She came into the ER. She felt weak, dizzy, tired and she has lost her appetite and she was having swollen glands in the pelvis before. She has also anemia and her legs were swollen. She was alert, oriented, and appeared weak. Her vitals, temperature 99.4, blood pressure 117/64. Urinalysis shows some leukocyte esterase, and she has lymphadenopathy, anemia, possible lymphoma and rule out malignancy. She was also seen by consultation, Dr. Alin Saldana and we asked also consultation for surgical, Dr. Heredia, so he has to take lymph node, so we can see if it is a lymphoma or not. She tolerated the procedure and she has biopsy of the inguinal lymph node done on 12/23/2016. She also has Dr. Vishnu Nagel, for the fever, she was taking antibiotics. She had discharge on 12/25/2016 because of her generalized weakness. Her vital signs were stable. She was taking medications; Lasix, Rocephin, metoprolol, and morphine. She has also oxycodone as needed. Potassium and vitamin B complex. Her hemoglobin is 7.7, 24 hematocrit, white count 11, and she was having occasional tachycardia that is why she was put on beta-lewis. She was having [facility], and fortunately started on treatment after the pathology comes for the lymph nodes for possible lymphoma. FINAL DIAGNOSES: Generalized weakness, severe anemia, lymphadenopathy, tachyarrhythmia and fever. Alyson Gutierrez MD
== END 2016-12-25 18:19 | DRG 824 ==
LOC: C.ER 06:50 → SUPCPDRO 06:50 → C.9E 08:36 → C.6T 12:53 → C.9E 14:28 → C.6T 16:35 → C.9E 18:43 → C.9I 19:01 → C.9E 21:24 → C.6T 21:47 → C.9E 22:27 → C.6T 23:50
PROVIDERS: ADMIT Internal Medicine; ATTEND Internal Medicine
PROC: 30233N1 Transfusion of Nonautologous Red Blood Cells into Peripheral Vein, Percutaneous Approach (ICD-10-PCS; 2016-12-21)
PROC: 07BJ0ZX Excision of Left Inguinal Lymphatic, Open Approach, Diagnostic (ICD-10-PCS; principal; 2016-12-23 15:30)
DX: C83.35 Diffuse large B-cell lymphoma, lymph nodes of inguinal region and lower limb (principal); I47.1 Supraventricular tachycardia; I27.2 Other secondary pulmonary hypertension; R63.0 Anorexia; D63.8 Anemia in other chronic diseases classified elsewhere; R53.83 Other fatigue; R53.81 Other malaise; R05 Cough; M17.11 Unilateral primary osteoarthritis, right knee

== ENCOUNTER 2017-01-08 17:05 | Inpatient (IN) | payer MEDICARE ==
[2017-01-08 17:06] VITALS: BMI 26.6
[2017-01-08] MEDS ORDERED: Cefepime IV 2 gm in Dextrose 2 GM/100 ML BAG IVPB STA (17:32)
[2017-01-08 17:44] LABS: BASO # 0.1 K/uL (0.0-0.2); BASO % 1.1 % (0.0-2.0); EOS % 0.1 % (0.0-4.0); HEMATOCRIT 25.7 % (34.0-47.0); LYMPH # 0.2 K/uL (1.0-4.3); LYMPH % 2.5 % (20.0-40.0); MEAN CELL VOLUME 87.5 fL (81.0-99.0); MEAN CORPUSCULAR HEMOGLOBIN 27.2 pg (27.0-31.0); MEAN CORPUSCULAR HGB CONC 31.1 g/dL (33.0-37.0); MEAN PLATELET VOLUME 8.6 fL (7.2-11.7); MONO # 2.5 K/uL (0.0-0.8); MONO % 24.8 % (0.0-10.0); NRBC % 0.1 % (0.0-2.0); PLATELET COUNT 337 K/uL (130-400); RED CELL DISTRIBUTION WIDTH 21.3 % (11.5-14.5); WHITE BLOOD COUNT 10.2 K/uL (4.8-10.8)
[2017-01-08 17:55] LABS: INR 1.7
[2017-01-08 18:02] LABS: CHLORIDE 103 mmol/L (98-107)
[2017-01-08 18:03] LABS: POTASSIUM 4.3 mmol/L (3.6-5.2); SODIUM 142 mmol/L (132-148)
[2017-01-08] MEDS ORDERED: Moxifloxacin IV 400mg/250ml NS 400 MG/250 ML BAG IVPB STA (18:03)
[2017-01-08 18:05] LABS: ALB/GLOB RATIO 0.8 (1.0-2.1); ALKALINE PHOSPHATASE 261 U/L (38-126); ALT/SGPT 48 U/L (9-52); AST/SGOT 147 U/L (14-36); BILIRUBIN,TOTAL 1.5 mg/dL (0.2-1.3); BLOOD UREA NITROGEN 23 mg/dL (7-17); CARBON DIOXIDE 13 mmol/L (22-30); GFR AFRICAN-AMERICAN > 60; GLUCOSE,RANDOM 98 mg/dL (65-105); TOTAL PROTEIN 6.2 g/dL (6.3-8.3)
[2017-01-08 18:06] LABS: MAGNESIUM 2.2 mg/dL (1.6-2.3); PHOSPHOROUS 3.3 mg/dL (2.5-4.5)
[2017-01-08 18:12] LABS: VENOUS BLOOD GAS BASE EXCESS -9.8 mmol/L (0.0-2.0); VENOUS BLOOD GAS PCO2 30 mmHg (40-60); VENOUS BLOOD PH 7.31 (7.32-7.43)
--- NOTE | 2017-01-08 18:20 | C.PDOC ---
History Of Present Illness 76 year old female with a Hx of SVT who presents to the ER after feeling very bad throughout the day. Patient reports having mild SOB, mild abdominal pain, and feeling like her heart was racing. Patient was brought in by ALS who found the patient in rapid afib at 180 bpm and administered cardizem in the field with positive result. Denies nausea, vomiting, or cough. Chief Complaint (Nursing): Palpitations History Per: Patient History/Exam Limitations: no limitations Onset/Duration Of Symptoms: Hrs Current Symptoms Are (Timing): Still Present Associated Symptoms: Dyspnea (Mild), Other (Mild abdominal pain). denies: Nausea, Diaphoresis, Syncope Modifying Factors: None Exacerbating Factors: None Alleviating Factors: None Recent travel outside of the [place]: No Past Medical History Reviewed: Historical Data, Nursing Documentation, Vital Signs Vital Signs: Last Vital Signs Temp 98.6 F 01/09/17 12:00 Pulse 133 H 01/09/17 12:00 Resp 25 H 01/09/17 12:00 BP 147/62 01/09/17 12:00 Pulse Ox 84 L 01/09/17 12:00 - Medical History PMH: No Chronic Diseases Surgical History: No Surg Hx - [facility] Procedures EXCISION OF LEFT INGUINAL LYMPHATIC, OPEN APPROACH, DIAGN (12/21/16) TRANSFUSE NONAUT RED BLOOD CELLS IN PERIPH VEIN, PERC (12/21/16) Family History: States: No Known Family Hx - Social History Hx Alcohol Use: Yes (10 YRS AGO) Hx Substance Use: No - Immunization History Hx Tetanus Toxoid Vaccination: No Hx Influenza Vaccination: No Hx Pneumococcal Vaccination: No Review Of Systems Cardiovascular: Positive for: Palpitations Respiratory: Positive for: Shortness of Breath (Mild). Negative for: Cough Gastrointestinal: Positive for: Abdominal Pain (Mild). Negative for: Nausea, Vomiting Physical Exam - Physical Exam Appears: Other (Cachetic, Tachypneic) Skin: Normal Color, Warm, Dry Head: Atraumatic, Normacephalic Oral Mucosa: Moist Neck: Normal ROM, Supple Chest: Symmetrical Cardiovascular: Rhythm Regular (Tachycardic) Respiratory: Normal Breath Sounds, No Rales, No Rhonchi, No Wheezing Gastrointestinal/Abdominal: Tenderness (Left sided), Distention, No Guarding, No Rebound Extremity: Normal ROM, Capillary Refill (<2 seconds) Neurological/Psych: Oriented x3, Normal Speech, Normal Cognition ED Course And Treatment - Laboratory Results Result Diagrams: 01/09/17 06:46 01/09/17 06:46 O2 Sat by Pulse Oximetry: 98 (RA) Pulse Ox Interpretation: Normal Progress Note: VBG showed lactate of 17, sepsis activated. Called recieved from radiologist who stated there is free air under patient's diaphragm and ordered and emergent dry CT abd/pel. Surgical consult called. ICU consult called. Reached out to patient's primary who states another physician is covering her service. Unable to contact physician who is covering patient's primary. After fluid resuscitation, patient's heart rate now 105, she is more awake. Patient admitted to ICU. Critical Care Time - Critical Care Note Total Time (in mins): 60 Documented critical care: time excludes all time spent performing seperately billable procedures. Disposition - Disposition Disposition: HOSPITALIZED Disposition Time: 21:15 Condition: CRITICAL - Clinical Impression Clinical Impression: SVT (supraventricular tachycardia), Pneumoperitoneum, Sepsis - Scribe Statement The provider has reviewed the documentation as recorded by the Scribelke Gentile All medical record entries made by the Luisibelke were at my direction and personally dictated by me. I have reviewed the chart and agree that the record accurately reflects my personal performance of the history, physical exam, medical decision making, and the department course for this patient. I have also personally directed, reviewed, and agree with the discharge instructions and disposition.
[2017-01-08] MEDS ORDERED: Sodium Chloride 0.9% 2,000 ML ONE (18:27)
[2017-01-08 18:38] LABS: THYROID STIMULATING HORMONE 1.75 mIU/L (0.46-4.68)
[2017-01-08 18:41] LABS: NEUTROPHIL 74 % (50-75); TOTAL CELLS COUNTED 100
[2017-01-08 18:42] LABS: PLATELET CLUMPS PRESENT
[2017-01-08 19:11] LABS: RBC URINE < 1 /hpf (0-3); URINE BILIRUBIN NEGATIVE (NEGATIVE); URINE BLOOD NEGATIVE (NEGATIVE); URINE COLOR Yellow (YELLOW); URINE GLUCOSE (UA) NORMAL (Normal); URINE KETONE NEGATIVE (NEGATIVE); URINE LEUKOCYTE ESTERASE NEG Leu/uL (Negative); URINE PROTEIN NEGATIVE (NEGATIVE); WBC URINE 1 /hpf (0-5)
[2017-01-08] MEDS ORDERED: Ciprofloxacin 400mg/200ml D5W 400 MG/200 ML BAG IVPB STA (19:43)
[2017-01-08] MEDS ORDERED: metroNIDAZOLE IV 500 mg/100 ml 500 MG/100 ML BAG IVPB STA (19:43)
--- NOTE | 2017-01-08 21:00 | CP.PCM.CON ---
History of Present Illness - History of Present Illness History of Present Illness: 76 yo F. PMHx HTN, recent diagnosis of lymphoma. 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 Patient presents with weakness and abdominal distention. found to have free air on CT abdomen. Elevated lactate. Surgery consulted, admitting to ICU for monitoring. Review of Systems - Review of Systems All systems: reviewed and no additional remarkable complaints except - Constitutional Constitutional: Weakness Past Patient History - Infectious Disease Hx of Infectious Diseases: None - Past Medical History & Family History Past Medical History?: Yes - Past Social History Smoking Status: Never Smoked - CARDIAC Hx Cardiac Disorders: No - PULMONARY Hx Respiratory Disorders: No - NEUROLOGICAL Hx Neurological Disorder: No - HEENT Hx HEENT Problems: No - RENAL Hx Chronic Kidney Disease: No - ENDOCRINE/METABOLIC Hx Endocrine Disorders: No - HEMATOLOGICAL/ONCOLOGICAL Hx Blood Disorders: No - INTEGUMENTARY Hx Dermatological Problems: No - MUSCULOSKELETAL/RHEUMATOLOGICAL Hx Musculoskeletal Disorders: No Hx Arthritis: No Hx Falls: No - GASTROINTESTINAL Hx Gastrointestinal Disorders: No - GENITOURINARY/GYNECOLOGICAL Hx Genitourinary Disorders: No - PSYCHIATRIC Hx Substance Use: No - SURGICAL HISTORY Hx Surgeries: No - ANESTHESIA Hx Anesthesia: No Hx Anesthesia Reactions: No Hx Malignant Hyperthermia: No Meds Allergies/Adverse Reactions: Allergies Allergy/AdvReac Type Severity Reaction Status Date / Time No Known Allergies Allergy Verified 12/21/16 06:56 - Medications Medications: Current Medications Acetaminophen (Tylenol 325mg Tab) 975 mg PO ONCE PRN PRN Reason: Fever >100.4 F Last Admin: 01/08/17 18:15 Dose: 975 mg Ciprofloxacin (Cipro 400mg/200ml Dsw) 400 mg in 200 mls @ 133 mls/hr IVPB STAT [facility] Stop: 01/08/17 21:13 Physical Exam - Head Exam Head Exam: ATRAUMATIC, NORMAL INSPECTION, NORMOCEPHALIC - Eye Exam Eye Exam: EOMI, Normal appearance, PERRL - ENT Exam ENT Exam: Mucous Membranes Moist, Normal Exam - Respiratory Exam Respiratory Exam: Clear to Auscultation Bilateral, NORMAL BREATHING PATTERN - Cardiovascular Exam Cardiovascular Exam: Tachycardia, REGULAR RHYTHM - GI/Abdominal Exam GI & Abdominal Exam: Distended, Hypoactive Bowel Sounds. absent: Firm, Guarding , Tenderness - Neurological Exam Neurological exam: Alert, CN II-XII Intact, Oriented x3, Reflexes Normal - Psychiatric Exam Psychiatric exam: Normal Affect, Normal Mood Results - Vital Signs Recent Vital Signs: Last Vital Signs Temp 100.3 F H 01/08/17 19:15 Pulse 113 H 01/08/17 19:30 Resp 33 H 01/08/17 19:30 BP 110/46 L 01/08/17 19:30 Pulse Ox 100 01/08/17 19:30 Assessment & Plan (1) Perforated bowel Assessment and Plan: 76yo F. PMHx HTN, high grade B-Cell lymphoma. p/w bowel perforation. Neuro: alert and oriented x 3 Pulm: tachypneic, no acute distress, saturating well on nasal canula oxygen. CV: relatively hypotensive for a normally hypertensive patient. received 4L fluid bolus in ED, continue NS@125. Hem: elevated lactate at baseline secondary to lymphoma. Now very high lactate secondary to probable perforated bowel. followup repeat. INR slightly elevated , will transfuse 2 FFP for possible surgical intervention. Renal: no acute issues, will monitor urine output Endo: no acute issues GI: NPO. Obtaining CT abdomen with po/IV contrast to r/o perforation. If no leak and no worsening free air, possible microperforation with spontaneous sealing, medical management. If perforation then probable need for surgical ex- lap. Patient will be high risk, for high risk procedure. ID: severe sepsis from perforated bowel, broad spectrum antibiotics Vanco and Zosyn. DVT proph - start post-op, SCD's GI proph - not currently indicated nixon for strict I/O's during acute illness Code status - full code Critical Care Time spent 35 minutes Multi-disciplinary rounds were performed with house staff, nursing, speech therapy, respiratory therapy, pharmacy and nutrition with integrated input from the primary team/attending and other consulting services. The documented time is cumulative and includes review of patient data/exams/labs/chart review and examination of the patient on rounds and throughout the day; time is exclusive of any procedures or teaching time. Status: Acute
[2017-01-08 21:03] LABS: VENOUS BLOOD GAS BASE EXCESS -7.7 mmol/L (0.0-2.0); VENOUS BLOOD GAS PCO2 30 mmHg (40-60); VENOUS BLOOD PH 7.35 (7.32-7.43)
[2017-01-08] MEDS: Sodium Chloride 0.9% 1,000 ML IV SCH (21:18)
[2017-01-08] MEDS ORDERED: Vancomycin 1 GM 1 GM/250 ML BAG IVPB ONE (21:50)
[2017-01-08] MEDS ORDERED: Piperacill/Tazo 3.375gm in Dex 3.375 GM/50 ML BAG IVPB SCH (22:00)
--- NOTE | 2017-01-08 22:55 | CP.PCM.CON ---
History of Present Illness - History of Present Illness History of Present Illness: General Surgery Re: Free air on CXR/CT HPI: 76F presented to ED via EMS she "felt bad" throughout the day, had palpitations, and has become progressively worse with shortness of breath. Pt recently diagnosed with B Cell Lymphoma by biopsy. Has been having diarrhea the past few days and has been feeling bloated as well. Denies chest or abdominal pain, N/V, constipation, hematochezia, melena, dysuria. Reports feeling hot and increased diaphoresis in the last two days. PMH: HTN, Tachycardia, High grade B-Cell Lymphoma PSH: Partial hysteresctomy SH: Denies Tobacco and drug use. Occasional past EtOH use All: NKDA Meds: See MAR Review of Systems - Review of Systems All systems: reviewed and no additional remarkable complaints except (as per HPI ) Past Patient History - Infectious Disease Hx of Infectious Diseases: None - Past Medical History & Family History Past Medical History?: Yes - Past Social History Smoking Status: Never Smoked - CARDIAC Hx Cardiac Disorders: No - PULMONARY Hx Respiratory Disorders: No - NEUROLOGICAL Hx Neurological Disorder: No - HEENT Hx HEENT Problems: No - RENAL Hx Chronic Kidney Disease: No - ENDOCRINE/METABOLIC Hx Endocrine Disorders: No - HEMATOLOGICAL/ONCOLOGICAL Hx Blood Disorders: No - INTEGUMENTARY Hx Dermatological Problems: No - MUSCULOSKELETAL/RHEUMATOLOGICAL Hx Musculoskeletal Disorders: No Hx Arthritis: No Hx Falls: No - GASTROINTESTINAL Hx Gastrointestinal Disorders: No - GENITOURINARY/GYNECOLOGICAL Hx Genitourinary Disorders: No - PSYCHIATRIC Hx Substance Use: No - SURGICAL HISTORY Hx Surgeries: No - ANESTHESIA Hx Anesthesia: No Hx Anesthesia Reactions: No Hx Malignant Hyperthermia: No Meds Allergies/Adverse Reactions: Allergies Allergy/AdvReac Type Severity Reaction Status Date / Time No Known Allergies Allergy Verified 12/21/16 06:56 - Medications Medications: Current Medications Acetaminophen (Tylenol 325mg Tab) 975 mg PO ONCE PRN PRN Reason: Fever >100.4 F Last Admin: 01/08/17 18:15 Dose: 975 mg Piperacillin Sod/Tazobactam Sod (Zosyn 3.375 Gm Iv Premix) 3.375 gm in 50 mls @ 100 mls/hr IVPB Q6H [facility] Sodium Chloride (Sodium Chloride 0.9%) 1,000 mls @ 125 mls/hr IV .Q8H [facility] Last Admin: 10/06/17 21:18 Dose: 125 mls/hr Physical Exam - Constitutional Appears: No Acute Distress, Cachectic, Chronically Ill - Head Exam Head Exam: ATRAUMATIC, NORMOCEPHALIC - Eye Exam Eye Exam: EOMI. absent: Scleral icterus - ENT Exam ENT Exam: Mucous Membranes Dry Additional comments: trachea midline - Respiratory Exam Respiratory Exam: absent: Accessory Muscle Use, Rales, Rhonchi, Wheezes, Respiratory Distress, NORMAL BREATHING PATTERN (tachypnic 30 breaths/min) - Cardiovascular Exam Cardiovascular Exam: Tachycardia, +S1, +S2 - GI/Abdominal Exam GI & Abdominal Exam: Distended, Hernia (small umbilical), Soft, Tenderness ( very minimal in LLQ). absent: Firm, Guarding, Rigid Additional comments: old hysterectomy scar - Rectal Exam Rectal Exam: Deferred - Extremities Exam Extremities exam: Positive for: pedal edema. Negative for: calf tenderness - Back Exam Back exam: absent: CVA tenderness (L), CVA tenderness (R) - Neurological Exam Neurological exam: Alert - Skin Skin Exam: Dry, Warm Results - Vital Signs Recent Vital Signs: Last Vital Signs Temp 98.1 F 01/08/17 21:48 Pulse 113 H 01/08/17 21:48 Resp 17 01/08/17 21:48 BP 106/43 L 01/08/17 21:48 Pulse Ox 99 01/08/17 21:48 - Imaging and Cardiology Chest x-ray Status: Image reviewed by me, Report reviewed by me CT scan - abdomen Status: Image reviewed by me, Report reviewed by me Assessment & Plan - Assessment and Plan (Free Text) Assessment: 76F with free air in abdomen found incidentally Plan: IVF NPO ICU admit CT scan with PO and IV contrast to locate possible leak HR monitoring 2U FFP F/U scan. Possible OR depending on results Serial abd exams D/W Dr. Ritesh Garcia PGY4
[2017-01-09] MEDS ORDERED: Sodium Chloride 0.9% 500 ML IV ONE
[2017-01-09] MEDS: Piperacill/Tazo 3.375gm in Dex 3.375 GM/50 ML BAG IVPB SCH ×2 (00:09→05:09)
--- NOTE | 2017-01-09 00:14 | CP.PCM.HP ---
History of Present Illness - History of Present Illness History of Present Illness: PGY1 Medicine Note for Dr. Fernandes 76 female with a past medical history of High grade B-Cell Lymphoma, HTN, hx of Tachycardia presented to ED via EMS stating she did not feel well throughout the day. She states she had palpitations, and had become progressively more short of breath throughout the day. Pt was recently diagnosed with B Cell Lymphoma by biopsy. She has been experiencing diarrhea the past few days and has been feeling bloated as well. Patient states that she is currently experiencing a moderate amount of abdominal pain compared to earlier when she felt none. She denies chest pain, n/v, constipation, hematochezia, melena, dysuria. PMH: High grade B-Cell Lymphoma, HTN, hx of Tachycardia PSH: Partial hysteresctomy SH: Denies Tobacco and drug use. previous occasional alcohol use All: NKDA Present on Admission - Present on Admission Any Indicators Present on Admission: No Review of Systems - Constitutional Constitutional: As Per HPI - EENT Eyes: As Per HPI. absent: Change in Vision - Cardiovascular Cardiovascular: As Per HPI, Palpitations. absent: Chest Pain, Leg Edema, Pedal Edema, Syncope - Respiratory Respiratory: As Per HPI. absent: Cough, Dyspnea on Exertion, Wheezing, Chest Congestion - Gastrointestinal Gastrointestinal: As Per HPI, Abdominal Pain, Bloating, Diarrhea. absent: Constipation, Hematemesis, Nausea, Vomiting - Neurological Neurological: absent: Dizziness, Numbness, Loss of Vision, Syncope, Tingling - Psychiatric Psychiatric: absent: Abnormal Sleep Pattern, Change in Appetite, Hopelessness, Memory Loss, Panic Attacks - Endocrine Endocrine: As Per HPI, Heat Intolorance, Palpitations. absent: Fatigue Past Patient History - Infectious Disease Hx of Infectious Diseases: None - Past Medical History & Family History Past Medical History?: Yes - Past Social History Smoking Status: Never Smoked - CARDIAC Hx Cardiac Disorders: No - PULMONARY Hx Respiratory Disorders: No - NEUROLOGICAL Hx Neurological Disorder: No - HEENT Hx HEENT Problems: No - RENAL Hx Chronic Kidney Disease: No - ENDOCRINE/METABOLIC Hx Endocrine Disorders: No - HEMATOLOGICAL/ONCOLOGICAL Hx Blood Disorders: No - INTEGUMENTARY Hx Dermatological Problems: No - MUSCULOSKELETAL/RHEUMATOLOGICAL Hx Musculoskeletal Disorders: No Hx Arthritis: No Hx Falls: No - GASTROINTESTINAL Hx Gastrointestinal Disorders: No - GENITOURINARY/GYNECOLOGICAL Hx Genitourinary Disorders: No - PSYCHIATRIC Hx Substance Use: No - SURGICAL HISTORY Hx Surgeries: No - ANESTHESIA Hx Anesthesia: No Hx Anesthesia Reactions: No Hx Malignant Hyperthermia: No Meds Allergies/Adverse Reactions: Allergies Allergy/AdvReac Type Severity Reaction Status Date / Time No Known Allergies Allergy Verified 12/21/16 06:56 Physical Exam - Constitutional Appears: Toxic, In Acute Distress - Head Exam Head Exam: ATRAUMATIC, NORMOCEPHALIC - Eye Exam Eye Exam: EOMI, Normal appearance - ENT Exam ENT Exam: Mucous Membranes Moist - Neck Exam Neck exam: Negative for: Lymphadenopathy, Tenderness - Respiratory Exam Respiratory Exam: Clear to Auscultation Bilateral, NORMAL BREATHING PATTERN. absent: Accessory Muscle Use, Rales, Wheezes, Respiratory Distress - Cardiovascular Exam Cardiovascular Exam: REGULAR RHYTHM, +S1, +S2 - GI/Abdominal Exam GI & Abdominal Exam: Distended, Firm, Guarding, Rigid, Tenderness (diffuse) - Extremities Exam Extremities exam: Positive for: pedal edema. Negative for: calf tenderness Additional comments: 3+ pitting edema b/l LE - Neurological Exam Neurological exam: Alert, Oriented x3 - Psychiatric Exam Additional comments: in pain - Skin Skin Exam: Dry, Normal Color, Warm Results - Vital Signs Recent Vital Signs: Last Vital Signs Temp 98.1 F 01/08/17 21:48 Pulse 113 H 01/08/17 21:48 Resp 17 01/08/17 21:48 BP 106/43 L 01/08/17 21:48 Pulse Ox 99 01/08/17 21:48 - Labs Result Diagrams: 01/08/17 17:40 01/08/17 17:40 Labs: Laboratory Results - last 24 hr 01/08/17 01/08/17 01/08/17 17:40 17:40 17:40 WBC 10.2 RBC 2.94 L Hgb 8.0 L Hct 25.7 L MCV 87.5 D MCH 27.2 MCHC 31.1 L RDW 21.3 H Plt Count 337 MPV 8.6 Neut % (Auto) 71.5 Lymph % (Auto) 2.5 L [place] % (Auto) 24.8 H Eos % (Auto) 0.1 Baso % (Auto) 1.1 Neut # 7.3 H Lymph # 0.2 L [place] # 2.5 H Eos # 0.0 Baso # 0.1 Neutrophils % (Manual) 74 Band Neutrophils % 5 H Lymphocytes % (Manual) 7 L Monocytes % (Manual) 14 H Platelet Estimate Normal Plt Clumps, EDTA Present Hypochromasia (manual) Slight Anisocytosis (manual) Slight PT 18.9 H INR 1.7 APTT 35 H D-Dimer, Quantitative 1041 H pO2 VBG pH VBG pCO2 VBG HCO3 VBG Total CO2 VBG O2 Sat (Calc) VBG Base Excess VBG Potassium Glucose Lactate Crit Value Called To Crit Value Called By Crit Value Read Back Blood Gas Notified Time Sodium 142 Potassium 4.3 Chloride 103 Carbon Dioxide 13 L Anion Gap 30 H BUN 23 H Creatinine 0.8 Est GFR ( Amer) > 60 Est GFR (Non-Af Amer) > 60 Random Glucose 98 Calcium 12.0 H Phosphorus 3.3 Magnesium 2.2 Total Bilirubin 1.5 H AST 147 H D ALT 48 Alkaline Phosphatase 261 H Troponin I 0.0690 Total Protein 6.2 L Albumin 2.7 L Globulin 3.6 Albumin/Globulin Ratio 0.8 L Free T4 Total T3 0.494 L TSH 3rd Generation 1.75 Venous Blood Potassium Urine Color Urine Clarity Urine pH Ur Specific [place] Urine Protein Urine Glucose (UA) Urine Ketones Urine Blood Urine Nitrate Urine Bilirubin Urine Urobilinogen Ur Leukocyte Esterase Urine WBC (Auto) Urine RBC (Auto) Ur Squamous Epith Cells Hyaline Casts Blood Type Antibody Screen 01/08/17 01/08/17 01/08/17 18:07 18:16 18:52 WBC RBC Hgb Hct MCV MCH MCHC RDW Plt Count MPV Neut % (Auto) Lymph % (Auto) [place] % (Auto) Eos % (Auto) Baso % (Auto) Neut # Lymph # [place] # Eos # Baso # Neutrophils % (Manual) Band Neutrophils % Lymphocytes % (Manual) Monocytes % (Manual) Platelet Estimate Plt Clumps, EDTA Hypochromasia (manual) Anisocytosis (manual) PT INR APTT D-Dimer, Quantitative pO2 50 VBG pH 7.31 L VBG pCO2 30 L VBG HCO3 16.8 VBG Total CO2 16.0 L VBG O2 Sat (Calc) 84.5 H VBG Base Excess -9.8 L VBG Potassium 5.6 H Glucose 100 Lactate 17.1 H* Crit Value Called To do [place] Crit Value Called By Delvin Crit Value Read Back Y Blood Gas Notified Time 1811 Sodium 144.0 Potassium Chloride 109.0 H Carbon Dioxide Anion Gap BUN Creatinine Est GFR ( Amer) Est GFR (Non-Af Amer) Random Glucose Calcium Phosphorus Magnesium Total Bilirubin AST ALT Alkaline Phosphatase Troponin I Total Protein Albumin Globulin Albumin/Globulin Ratio Free T4 1.17 Total T3 TSH 3rd Generation Venous Blood Potassium 5.6 H Urine Color Yellow Urine Clarity Clear Urine pH 5.0 Ur Specific [place] 1.010 Urine Protein Negative Urine Glucose (UA) Normal Urine Ketones Negative Urine Blood Negative Urine Nitrate Negative Urine Bilirubin Negative Urine Urobilinogen 4.0 H Ur Leukocyte Esterase Neg Urine WBC (Auto) 1 Urine RBC (Auto) < 1 Ur Squamous Epith Cells < 1 Hyaline Casts 3-5 H Blood Type Antibody Screen 01/08/17 01/08/17 19:55 21:00 WBC RBC Hgb Hct MCV MCH MCHC RDW Plt Count MPV Neut % (Auto) Lymph % (Auto) [place] % (Auto) Eos % (Auto) Baso % (Auto) Neut # Lymph # [place] # Eos # Baso # Neutrophils % (Manual) Band Neutrophils % Lymphocytes % (Manual) Monocytes % (Manual) Platelet Estimate Plt Clumps, EDTA Hypochromasia (manual) Anisocytosis (manual) PT INR APTT D-Dimer, Quantitative pO2 61 H VBG pH 7.35 VBG pCO2 30 L VBG HCO3 18.7 VBG Total CO2 17.5 L VBG O2 Sat (Calc) 93.0 H VBG Base Excess -7.7 L VBG Potassium 4.4 Glucose 85 Lactate 14.7 H* Crit Value Called To Er nurse adriel Crit Value Called By Jerome garg Crit Value Read Back Y Blood Gas Notified Time 2102 Sodium 145.0 Potassium Chloride 110.0 H Carbon Dioxide Anion Gap BUN Creatinine Est GFR ( Amer) Est GFR (Non-Af Amer) Random Glucose Calcium Phosphorus Magnesium Total Bilirubin AST ALT Alkaline Phosphatase Troponin I Total Protein Albumin Globulin Albumin/Globulin Ratio Free T4 Total T3 TSH 3rd Generation Venous Blood Potassium 4.4 Urine Color Urine Clarity Urine pH Ur Specific [place] Urine Protein Urine Glucose (UA) Urine Ketones Urine Blood Urine Nitrate Urine Bilirubin Urine Urobilinogen Ur Leukocyte Esterase Urine WBC (Auto) Urine RBC (Auto) Ur Squamous Epith Cells Hyaline Casts Blood Type B POSITIVE Antibody Screen Negative Assessment & Plan - Assessment and Plan (Free Text) Assessment: Sepsis - possibly 2/2 perforated bowel Surgery consulted, Dr. Naresh Awad Hypotension - received 4L fluid bolus in ED, placed on NS @ 125mL Abd/Pelvis CT w/PO&IV contrast - Large amounts of free intraperitoneal air are again identified, concerning for perforated viscus. Extensive lymphadenopathy, unchanged. Abnormal attenuation within the liver, worrisome for diffuse metastatic disease, also unchanged. * PO contrast did not reach large bowel. May need repeat CT to evaluate for perforation. Elevated Lactate - at baseline due to lymphoma, but extremely elevated due to perforation * 17.1 (on admission) -->14.7-->14.6 Vanco Zosyn 2 unites of FFP transfused for possible surgical intervention William - strict I's & o's, during acute phase of illness NPO f/u blood/urine cultures Prophylactic Care DVT - will start post-op, SCDs GI - Protonix 40mg IVP daily Patient transferred to ICU. Intubated. Awaiting further surgical recs. Case discussed with Dr. Dom Doe Marcia PGY1
[2017-01-09] MEDS ORDERED: Iohexol 240 (50 ml) PO ONE (00:15)
[2017-01-09] MEDS ORDERED: Iodixanol 320 MG/ML 100 ML BOTTLE IV ONE (01:42)
[2017-01-09] MEDS: Sodium Chloride 0.9% 1,000 ML IV SCH ×2 (02:34→05:15)
--- NOTE | 2017-01-09 04:06 | CT ---
EXAM: CT Abdomen and Pelvis With Intravenous Contrast CLINICAL HISTORY: 76 years old, female; Pain; Abdominal pain; Patient HX: 9--17; Additional info: Perforation TECHNIQUE: Axial computed tomography images of the abdomen and pelvis with intravenous contrast. All CT scans at this facility use one or more dose reduction techniques, viz.: automated exposure control; ma/kV adjustment per patient size (including targeted exams where dose is matched to indication; i.e. head); or iterative reconstruction technique. Coronal and sagittal reformatted images were created and reviewed. CONTRAST: 100 mL of [id number] administered intravenously. COMPARISON: CT - ABD PELVIS W/O PO OR IV CONT 01/08/2017 7:05:25 PM FINDINGS: Lower thorax: The bilateral lung bases are clear. ABDOMEN: Liver: Persistent heterogeneous attenuation throughout the liver, findings consistent with metastatic disease, unchanged from prior Gallbladder and bile ducts: No acute findings. No calcified stones. No significant intra- or extrahepatic biliary ductal dilation. Pancreas: Enhances homogeneously. No ductal dilation. No discrete mass. Spleen: No acute findings. Adrenals: No acute findings. Kidneys and ureters: No acute findings. No hydronephrosis or renal calculi. No discrete solid mass. PELVIS: Bladder: No acute findings. Reproductive: No acute findings. ABDOMEN and PELVIS: Stomach and bowel: A bowel containing left inguinal hernia. Diffuse mural thickening with minimal dilatation. Contrast extends to the level of the distal small bowel, without obstruction. Peritoneum: Copious amounts of free intra-abdominal air is identified, concerning for perforated viscus. Lymph nodes: Extensive para-aortic, retroperitoneal, mesenteric, iliac, femoral and bilateral inguinal lymph node chains, as seen prior. Vasculature: Calcified vascular disease. Bones: No acute fracture. No lytic or blastic disease. IMPRESSION: Large amounts of free intraperitoneal air are again identified, concerning for perforated viscus. Extensive lymphadenopathy, unchanged. Abnormal attenuation within the liver, worrisome for diffuse metastatic disease, also unchanged.
[2017-01-09] MEDS ORDERED: Metoprolol 1 mg/ml Inj IVP ONE (04:35)
[2017-01-09 05:10] LABS: ABG ALLEN TEST POS; ABG MECHANICAL RATE 25; ARTERIAL BLOOD GAS MODE PRVC; ATERIAL BLOOD GAS PEEP 5; DRAW SITE RR
[2017-01-09] MEDS ORDERED: Albumin Human 25% (12.5 gm/50 ml) IV ONE (06:40)
[2017-01-09] MEDS ORDERED: Sodium Bicarbonate (8.4%) 50 Meq Syringe IVP ONE ×2 (06:40→09:06)
[2017-01-09] MEDS ORDERED: Sodium Chloride 0.9% 1,000 ML IV ONE ×2 (06:40→09:08)
[2017-01-09 06:53] LABS: MEAN PLATELET VOLUME 8.7 fL (7.2-11.7); PLATELET COUNT 292 K/uL (130-400)
[2017-01-09 07:01] LABS: CHLORIDE 106 mmol/L (98-107)
[2017-01-09 07:02] LABS: POTASSIUM 4.9 mmol/L (3.6-5.2); SODIUM 142 mmol/L (132-148)
[2017-01-09 07:04] LABS: CARBON DIOXIDE 14 mmol/L (22-30); GFR AFRICAN-AMERICAN > 60
[2017-01-09 07:05] LABS: ALB/GLOB RATIO 0.7 (1.0-2.1); ALKALINE PHOSPHATASE 184 U/L (38-126); ALT/SGPT 58 U/L (9-52); AST/SGOT 257 U/L (14-36); BILIRUBIN,TOTAL 1.5 mg/dL (0.2-1.3); BLOOD UREA NITROGEN 26 mg/dL (7-17); CALCIUM 11.5 mg/dl (8.6-10.4); GLUCOSE,RANDOM 56 mg/dL (65-105); PHOSPHOROUS 4.7 mg/dL (2.5-4.5); TOTAL PROTEIN 5.9 g/dL (6.3-8.3)
[2017-01-09 07:06] LABS: MAGNESIUM 2.2 mg/dL (1.6-2.3)
--- NOTE | 2017-01-09 07:17 | PCM.PROC ---
Procedures Attestation:: I certify that I have explained the specified Operation(s) or Procedure(s), risks, benefits and reasonable alternatives to the Patient and/or other person responsible. The opportunity was given to ask questions and all questions answered - Intubation Time Out Performed: Yes Sedative: Etomidate Laryngoscope: Gerald ET Tube Size: 7.5 ET Tube Uncuffed: No ET Tube Secured Locarion: Lips (21) ET Tube Placement Confirmation: Visualized Passing Through Cords, Breath Sounds Equal Bilaterally, No Breath Sounds Over Epigastrum, Confirmation w/Capnometry ( Patient vomited as soon as received etomidate, quickly suctioned and intubated, about 800ml of dark putrid material pt vomited. ) Additional comments: Patient was intubated to reduce the work of breathing due her RR being above 40/ min, which has primarily been due to severe metabolic acidosis from her abdominal pathology generating lactate and her liver being severely infiltrated with lymphoma unable to clear lactate.
[2017-01-09 07:30] LABS: BASO % 0.3 % (0.0-2.0); EOS % 0.2 % (0.0-4.0); HEMATOCRIT 24.4 % (34.0-47.0); LYMPH # 0.5 K/uL (1.0-4.3); LYMPH % 3.9 % (20.0-40.0); MEAN CORPUSCULAR HGB CONC 29.7 g/dL (33.0-37.0); MONO # 1.9 K/uL (0.0-0.8); MONO % 15.9 % (0.0-10.0); NRBC % 0.2 % (0.0-2.0); RED CELL DISTRIBUTION WIDTH 21.4 % (11.5-14.5)
[2017-01-09 07:33] LABS: MEAN CELL VOLUME 90.8 fL (81.0-99.0)
--- NOTE | 2017-01-09 07:51 | CP.PCM.PN ---
Subjective - Date & Time of Evaluation Date of Evaluation: 01/09/17 Time of Evaluation: 06:45 - Subjective Subjective: General Surgery Dr. Awad Pt S&E @bedside. Intubated and sedated. currently no requiring pressers. Vent settings: 25, 500, 5, FiO2 100%, Sat 100% Objective - Vital Signs/Intake and Output Vital Signs (last 24 hours): Temp Pulse Resp BP Pulse Ox 97.5 F L 178 H 38 H 115/51 L 97 01/09/17 04:00 01/09/17 04:35 01/09/17 04:35 01/09/17 04:36 01/09/17 04:35 Intake and Output: 01/09/17 01/09/17 06:59 18:59 Intake Total 3499 Output Total 300 Balance 3199 - Medications Medications: Current Medications Acetaminophen (Tylenol 325mg Tab) 975 mg PO ONCE PRN PRN Reason: Fever >100.4 F Last Admin: 01/08/17 18:15 Dose: 975 mg Budesonide (Pulmicort Respules) 0.5 mg INH RQ12 [facility] Sodium Chloride (Sodium Chloride 0.9%) 1,000 mls @ 125 mls/hr IV .Q8H [facility] Last Admin: 01/09/17 05:15 Dose: Not Given Piperacillin Sod/Tazobactam Sod (Zosyn 3.375 Gm Iv Premix) 3.375 gm in 50 mls @ 100 mls/hr IVPB Q6H [facility] Last Admin: 01/09/17 05:09 Dose: 100 mls/hr Pantoprazole Sodium (Protonix Inj) 40 mg IVP DAILY [facility] - Labs Labs: 01/09/17 06:46 01/09/17 06:46 PT 18.9 SECONDS (9.7-12.2) H 01/08/17 17:40 INR 1.7 01/08/17 17:40 APTT 35 SECONDS (21-34) H 01/08/17 17:40 - Constitutional Appears: Non-toxic, No Acute Distress - Head Exam Head Exam: NORMAL INSPECTION - Eye Exam Eye Exam: Normal appearance - ENT Exam Additional comments: ETT/NGT in place - Respiratory Exam Respiratory Exam: NORMAL BREATHING PATTERN (mechanical ventilation). absent: Accessory Muscle Use, Respiratory Distress - Cardiovascular Exam Cardiovascular Exam: Tachycardia, REGULAR RHYTHM - GI/Abdominal Exam GI & Abdominal Exam: Distended (miniaml distension), Soft, Tenderness (minimal TTP LLQ). absent: Firm, Guarding, Rigid, Rebound - Extremities Exam Extremities Exam: Normal Inspection - Neurological Exam Neurological Exam: absent: Alert, Awake - Psychiatric Exam Additional comments: sedated - Skin Skin Exam: Dry, Intact, Normal Color, Warm Assessment and Plan - Assessment and Plan (Free Text) Assessment: 76 y/o F w/ incidental free air in abdomen - Patient is not currently stable for OR - cont supportive care w/ IVF, Abx, ventilation - will continue to evaluate. - monitor vitals - Serial abd exams Pt discussed w/ Dr. Ritesh Leung DO PGY2
--- NOTE | 2017-01-09 07:55 | CT ---
PROCEDURE: CT Abdomen and Pelvis without intravenous contrast HISTORY: ? pneumoperitonium on CXR COMPARISON: Comparison is made to the previous CT dated 12/21/2016 TECHNIQUE: Axial and reformatted coronal and sagittal CT images of the abdomen and pelvis were obtained without IV or oral contrast administration.. Contrast Dose: 0 Radiation dose: Total exam DLP = 540.41 mGy-cm. This CT exam was performed using one or more of the following dose reduction techniques: Automated exposure control, adjustment of the mA and/or kV according to patient size, and/or use of iterative reconstruction technique. FINDINGS: LOWER THORAX: Unremarkable. LIVER: Again seen are slightly low-attenuation multiple mass lesions in the liver likely represent metastasis. GALLBLADDER AND BILE DUCTS: No CT evidence of acute cholecystitis. PANCREAS: The pancreas is poorly visualized in this study. SPLEEN: The spleen is normal in size demonstrate heterogeneous attenuation and multiple slightly low-attenuation mass lesion also suspicious for metastasis. ADRENALS: Unremarkable. No massThe adrenal glands are not well visualized in this study. No definite evidence of mass lesion at the region of the adrenal glands. . KIDNEYS AND URETERS: No evidence of nephrolithiasis or hydronephrosis. Re- demonstration of low-attenuation cyst at the mid to lower pole left kidney measures 3.1 centimeter. VASCULATURE: Diffuse atherosclerotic disease is again seen in the abdominal aorta. The abdominal aorta is displaced anteriorly by large retroperitoneal lymphadenopathy. BOWEL: Again seen is short segment of market wall thickening at the junction of the descending and sigmoid colon. Findings highly suspicious for malignant neoplasm/ colon cancer. No evidence of small bowel obstruction. The possibility of perforation in the rectum or sigmoid colon should be considered. APPENDIX: No evidence of appendicitis. PERITONEUM: There is moderate amount of free air in the pelvis and anterior aspect of the abdomen likely due to bowel perforation. Trace free fluid is also noted. LYMPH NODES: Re- demonstration of large retroperitoneal lymphadenopathy. Re- demonstration of markedly enlarged lymphadenopathy at the bilateral inguinal region right more than left. Large lymphadenopathy seen also at the bilateral pelvic sidewall. BLADDER: There is a William catheter in REPRODUCTIVE: The uterus and adnexa are not visualized in this study BONES: No acute fracture. OTHER FINDINGS: Diffuse moderate anasarca is noted. IMPRESSION: Moderate to large amount of free air seen in the pelvis and abdomen likely due to bowel perforation. The possibility of perforation of the large bowel especially the sigmoid should be considered. Re- demonstration of short segment of wall thickening at the sigmoid colon suspicious for malignant neoplasm. Re- demonstration of multiple mass lesions in the liver and spleen suggestive of metastasis. Re- demonstration of marked lymphadenopathy in the abdomen and pelvis also suggestive of metastasis. The differential consideration also includes lymphoma or leukemia. Preliminary report was submitted by [facility].
[2017-01-09] MEDS ORDERED: Budesonide 0.5 mg/2 ml Inhal Susp UD INH SCH (08:00)
[2017-01-09 08:19] LABS: METAMYELOCYTE 2 % (0-0); NEUTROPHIL 64 % (50-75); TOTAL CELLS COUNTED 100
[2017-01-09 08:20] LABS: LARGE PLATELETS PRESENT
[2017-01-09] MEDS ORDERED: Dextrose 50% SYRINGE Inj (50 ml) IV STA (09:04)
[2017-01-09] MEDS ORDERED: DOPamine 400mg/250ml D5W 400 MG/250 ML BAG IV PRN (09:09)
--- NOTE | 2017-01-09 09:16 | RAD ---
PROCEDURE: CHEST RADIOGRAPH, 1 VIEW HISTORY: chest pain COMPARISON: 12/21/2016 FINDINGS: LUNGS: The lungs are clear. PLEURA: No pneumothorax or pleural fluid seen. CARDIOVASCULAR: Normal. OSSEOUS STRUCTURES: No significant abnormalities. VISUALIZED UPPER ABDOMEN: Normal. OTHER FINDINGS: There is free air under both hemidiaphragms P IMPRESSION: No active pulmonary disease. Pneumoperitoneum.
--- NOTE | 2017-01-09 09:35 | CP.CCUPN ---
CCU Subjective - Physician Review Events Since Last Encounter (Free Text): 01/09/17 09:35 Patient is a 76-year-old female with a history of hypertension, lymphoma admitted with the acute abdomen. Patient is currently severe distress. Very hypotensive. Very highly elevated lactic acidosis. Very poor prognosis. unable to have any surgical approach because of the severe hypotension, and unstable clinical condition. Seen by a surgeon. On examination: Patient is agonal breathing. On ventilator. Dopamine started. Bicarbonate is given. 1 epinephrine IV push given. No urine output. Overall prognosis is very poor. Consider alternative treatment, including DNR/DNI, will speak to the family Yesterday team spoke to the family and explained to the family about the clinical condition CCU Objective - Vital Signs / Intake & Output Vital Signs (Last 4 hours): Vital Signs Temp Pulse Resp BP Pulse Ox 01/09/17 09:15 109 H 38 H 65/26 L 92 L 01/09/17 08:55 154 H 25 H 123/39 L 91 L 01/09/17 08:51 153 H 24 111/24 L 92 L 01/09/17 08:50 153 H 25 H 92 L 01/09/17 08:45 151 H 37 H 119/39 L 94 L 01/09/17 08:40 173 H 21 112/40 L 96 01/09/17 08:39 171 H 30 H 116/41 L 96 01/09/17 08:37 124 H 26 H 85/49 L 96 01/09/17 08:36 124 H 38 H 99/45 L 95 01/09/17 08:35 125 H 38 H 102/39 L 94 L 01/09/17 08:30 119 H 21 113/45 L 96 01/09/17 08:26 115 H 24 105/42 L 96 01/09/17 08:20 86 25 H 65/26 L 94 L 01/09/17 08:19 83 17 64/37 L 01/09/17 08:17 82 19 57/22 L 95 01/09/17 08:10 69 25 H 92 L 01/09/17 08:00 99.8 F H 117 H 26 H 65/26 L 95 01/09/17 07:57 178 H 01/09/17 07:50 92 H 25 H 96 01/09/17 07:48 118 H 25 H 69/33 L 95 01/09/17 07:47 119 H 25 H 68/33 L 95 01/09/17 07:40 119 H 25 H 84/39 L 97 01/09/17 07:30 116 H 25 H 98 01/09/17 07:25 119 H 25 H 93/39 L 99 01/09/17 07:20 119 H 27 H 99 01/09/17 07:10 120 H 25 H 115/37 L 99 01/09/17 07:00 125 H 27 H 100 01/09/17 06:55 127 H 29 H 107/40 L 99 01/09/17 06:50 114 H 29 H 96 01/09/17 06:40 116 H 28 H 78/38 L 92 L 01/09/17 06:36 118 H 28 H 69/39 L 88 L 01/09/17 06:35 118 H 30 H 74/40 L 87 L 01/09/17 06:33 118 H 29 H 75/36 L 01/09/17 06:30 119 H 29 H 01/09/17 06:20 117 H 30 H 01/09/17 06:10 116 H 28 H 01/09/17 06:00 115 H 29 H 01/09/17 05:50 112 H 30 H 01/09/17 05:40 113 H 28 H 90 L Intake and Output (Last 8hrs): Intake & Output 01/08/17 01/09/17 01/09/17 22:59 06:59 14:59 Intake Total 1800 1699 1025 Output Total 300 250 Balance 1800 1399 775 Weight 130 lb 135 lb Intake: IV 1800 Intake, IV Amount 1374 1025 right ac 1374 1025 Blood Product 325 Output: Urine 300 100 Urethral (William) 300 100 Other 150 Other: Voiding Method Indwelling Catheter - Medications Active Medications: Active Medications Generic Name Dose Route Start Last Admin Trade Name Freq PRN Reason Stop Dose Admin Acetaminophen 975 mg 01/08/17 17:32 01/08/17 18:15 Tylenol 325mg Tab PO 975 mg ONCE PRN Administration Fever >100.4 F Budesonide 0.5 mg 01/09/17 08:00 01/09/17 08:02 Pulmicort Respules INH 0.5 mg RQ12 HOLLI Administration Sodium Chloride 1,000 mls @ 125 mls/hr 01/08/17 21:15 01/09/17 05:15 Sodium Chloride 0.9% IV Not Given .Q8H HOLLI Piperacillin Sod/Tazobactam Sod 3.375 gm in 50 mls @ 100 mls/hr 01/09/17 00: 00 01/09/17 05:09 Zosyn 3.375 Gm Iv Premix IVPB 100 mls/hr Q6H HOLLI Administration Sodium Chloride 1,000 mls @ 1,000 mls/hr 01/09/17 09:08 01/09/17 08:15 Sodium Chloride 0.9% IV 01/09/17 10:07 1,000 mls/hr .Q1H ONE Administration Dopamine HCl/Dextrose 400 mg in 250 mls @ 34.445 mls/hr 01/09/17 09:09 09:15 Dopamine 400mg/250ml D5w IV 15 mcg/kg/min .Q7H16M PRN 34.445 mls/hr TITRATE PER MD ORDER Administration Protocol 15 MCG/KG/MIN Pantoprazole Sodium 40 mg 01/09/17 10:00 Protonix Inj IVP DAILY OHLLI - Patient Studies Lab Studies: Lab Studies 01/09/17 01/09/17 01/09/17 Range/Units 06:46 06:46 04:59 WBC 12.0 H (4.8-10.8) K/uL RBC 2.69 L (3.80-5.20) Mil/uL Hgb 7.3 L (11.0-16.0) g/dL Hct 24.4 L (34.0-47.0) % MCV 90.8 D (81.0-99.0) fL MCH 27.0 (27.0-31.0) pg MCHC 29.7 L (33.0-37.0) g/dL RDW 21.4 H (11.5-14.5) % Plt Count 292 (130-400) K/uL MPV 8.7 (7.2-11.7) fL Neut % (Auto) 79.7 H (50.0-75.0) % Lymph % (Auto) 3.9 L (20.0-40.0) % [place] % (Auto) 15.9 H (0.0-10.0) % Eos % (Auto) 0.2 (0.0-4.0) % Baso % (Auto) 0.3 (0.0-2.0) % Neut # 9.6 H (1.8-7.0) K/uL Lymph # 0.5 L (1.0-4.3) K/uL [place] # 1.9 H (0.0-0.8) K/uL Eos # 0.0 (0.0-0.7) K/uL Baso # 0.0 (0.0-0.2) K/uL Neutrophils % (Manual) 64 (50-75) % Band Neutrophils % 19 H* (0-2) % Lymphocytes % (Manual) 1 L (20-40) % Monocytes % (Manual) 14 H (0-10) % Metamyelocytes % 2 H (0-0) % Toxic Granulation Present Platelet Estimate Normal (NORMAL) Plt Clumps, EDTA Large Platelets Present Polychromasia Slight Hypochromasia (manual) Slight Poikilocytosis (manual Slight Anisocytosis (manual) Slight Microcytosis (manual) Slight Macrocytosis (manual) Slight Target Cells Slight PT (9.7-12.2) SECONDS INR APTT (21-34) SECONDS D-Dimer, Quantitative (0-243) ng/mlDDU Puncture Site Rr pCO2 38 (35-45) mm/Hg pO2 82 (30-55) mm/Hg HCO3 14.7 L (21-28) mmol/L ABG pH 7.19 L* (7.35-7.45) ABG Total CO2 15.7 L (22-28) mmol/L ABG O2 Saturation 96.4 (95-98) % ABG Base Excess -13.0 L (-2.0-3.0) mmol/L Real Test Pos ABG Potassium 4.8 (3.6-5.2) mmol/L VBG pH (7.32-7.43) VBG pCO2 (40-60) mmHg VBG HCO3 mmol/L VBG Total CO2 (22-28) mmol/L VBG O2 Sat (Calc) (40-65) % VBG Base Excess (0.0-2.0) mmol/L VBG Potassium (3.6-5.2) mmol/L A-a O2 Difference 227.0 mm/Hg Respiratory Index 2.8 Glucose 66 (65-105) mg/dl Lactate 14.6 H* (0.7-2.1) mmol/L Vent Mode Prvc Mechanical Rate 25 FiO2 50.0 % Tidal Volume 450 PEEP 5 Crit Value Called To Divya ortiz rn Crit Value Called By Jadon juvenile detention officer Crit Value Read Back Y Blood Gas Notified Time 509 Sodium 142 144.0 (132-148) mmol/L Potassium 4.9 (3.6-5.2) mmol/L Chloride 106 113.0 H (98-107) mmol/L Carbon Dioxide 14 L (22-30) mmol/L Anion Gap 27 H (10-20) BUN 26 H (7-17) mg/dL Creatinine 0.8 (0.7-1.2) mg/dL Est GFR ( Amer) > 60 Est GFR (Non-Af Amer) > 60 Random Glucose 56 L (65-105) mg/dL Calcium 11.5 H (8.6-10.4) mg/dl Phosphorus 4.7 H (2.5-4.5) mg/dL Magnesium 2.2 (1.6-2.3) mg/dL Total Bilirubin 1.5 H (0.2-1.3) mg/dL AST 257 H D (14-36) U/L ALT 58 H D (9-52) U/L Alkaline Phosphatase 184 H D (38-126) U/L Troponin I (0.00-0.120) ng/mL Total Protein 5.9 L (6.3-8.3) g/dL Albumin 2.5 L (3.5-5.0) g/dL Globulin 3.4 (2.2-3.9) gm/dL Albumin/Globulin Ratio 0.7 L (1.0-2.1) Free T4 (0.78-2.19) ng/dL Total T3 (1.49-2.60) nmol/L TSH 3rd Generation (0.46-4.68) mIU/L Arterial Blood Potassium 4.8 (3.6-5.2) mmol/L Venous Blood Potassium (3.6-5.2) mmol/L Urine Color (YELLOW) Urine Clarity (Clear) Urine pH (5.0-8.0) Ur Specific [place] (1.003-1.030) Urine Protein (NEGATIVE) mg/dL Urine Glucose (UA) (Normal) mg/dL Urine Ketones (NEGATIVE) mg/dL Urine Blood (NEGATIVE) Urine Nitrate (NEGATIVE) Urine Bilirubin (NEGATIVE) Urine Urobilinogen (0.2-1.0) mg/dL Ur Leukocyte Esterase (Negative) Ryne/uL Urine WBC (Auto) (0-5) /hpf Urine RBC (Auto) (0-3) /hpf Ur Squamous Epith Cells (0-5) /hpf Hyaline Casts (0-2) /lpf Blood Type Antibody Screen 01/08/17 01/08/17 01/08/17 Range/Units 21:00 19:55 18:52 WBC (4.8-10.8) K/uL RBC (3.80-5.20) Mil/uL Hgb (11.0-16.0) g/dL Hct (34.0-47.0) % MCV (81.0-99.0) fL MCH (27.0-31.0) pg MCHC (33.0-37.0) g/dL RDW (11.5-14.5) % Plt Count (130-400) K/uL MPV (7.2-11.7) fL Neut % (Auto) (50.0-75.0) % Lymph % (Auto) (20.0-40.0) % [place] % (Auto) (0.0-10.0) % Eos % (Auto) (0.0-4.0) % Baso % (Auto) (0.0-2.0) % Neut # (1.8-7.0) K/uL Lymph # (1.0-4.3) K/uL [place] # (0.0-0.8) K/uL Eos # (0.0-0.7) K/uL Baso # (0.0-0.2) K/uL Neutrophils % (Manual) (50-75) % Band Neutrophils % (0-2) % Lymphocytes % (Manual) (20-40) % Monocytes % (Manual) (0-10) % Metamyelocytes % (0-0) % Toxic Granulation Platelet Estimate (NORMAL) Plt Clumps, EDTA Large Platelets Polychromasia Hypochromasia (manual) Poikilocytosis (manual Anisocytosis (manual) Microcytosis (manual) Macrocytosis (manual) Target Cells PT (9.7-12.2) SECONDS INR APTT (21-34) SECONDS D-Dimer, Quantitative (0-243) ng/mlDDU Puncture Site pCO2 (35-45) mm/Hg pO2 61 H (30-55) mm/Hg HCO3 (21-28) mmol/L ABG pH (7.35-7.45) ABG Total CO2 (22-28) mmol/L ABG O2 Saturation (95-98) % ABG Base Excess (-2.0-3.0) mmol/L Real Test ABG Potassium (3.6-5.2) mmol/L VBG pH 7.35 (7.32-7.43) VBG pCO2 30 L (40-60) mmHg VBG HCO3 18.7 mmol/L VBG Total CO2 17.5 L (22-28) mmol/L VBG O2 Sat (Calc) 93.0 H (40-65) % VBG Base Excess -7.7 L (0.0-2.0) mmol/L VBG Potassium 4.4 (3.6-5.2) mmol/L A-a O2 Difference mm/Hg Respiratory Index Glucose 85 (65-105) mg/dl Lactate 14.7 H* (0.7-2.1) mmol/L Vent Mode Mechanical Rate FiO2 % Tidal Volume PEEP Crit Value Called To Er nurse adriel Crit Value Called By Jerome garg Crit Value Read Back Y Blood Gas Notified Time 2102 Sodium 145.0 (132-148) mmol/L Potassium (3.6-5.2) mmol/L Chloride 110.0 H (98-107) mmol/L Carbon Dioxide (22-30) mmol/L Anion Gap (10-20) BUN (7-17) mg/dL Creatinine (0.7-1.2) mg/dL Est GFR ( Amer) Est GFR (Non-Af Amer) Random Glucose (65-105) mg/dL Calcium (8.6-10.4) mg/dl Phosphorus (2.5-4.5) mg/dL Magnesium (1.6-2.3) mg/dL Total Bilirubin (0.2-1.3) mg/dL AST (14-36) U/L ALT (9-52) U/L Alkaline Phosphatase (38-126) U/L Troponin I (0.00-0.120) ng/mL Total Protein (6.3-8.3) g/dL Albumin (3.5-5.0) g/dL Globulin (2.2-3.9) gm/dL Albumin/Globulin Ratio (1.0-2.1) Free T4 (0.78-2.19) ng/dL Total T3 (1.49-2.60) nmol/L TSH 3rd Generation (0.46-4.68) mIU/L Arterial Blood Potassium (3.6-5.2) mmol/L Venous Blood Potassium 4.4 (3.6-5.2) mmol/L Urine Color Yellow (YELLOW) Urine Clarity Clear (Clear) Urine pH 5.0 (5.0-8.0) Ur Specific [place] 1.010 (1.003-1.030) Urine Protein Negative (NEGATIVE) mg/dL Urine Glucose (UA) Normal (Normal) mg/dL Urine Ketones Negative (NEGATIVE) mg/dL Urine Blood Negative (NEGATIVE) Urine Nitrate Negative (NEGATIVE) Urine Bilirubin Negative (NEGATIVE) Urine Urobilinogen 4.0 H (0.2-1.0) mg/dL Ur Leukocyte Esterase Neg (Negative) Ryne/uL Urine WBC (Auto) 1 (0-5) /hpf Urine RBC (Auto) < 1 (0-3) /hpf Ur Squamous Epith Cells < 1 (0-5) /hpf Hyaline Casts 3-5 H (0-2) /lpf Blood Type B POSITIVE Antibody Screen Negative 01/08/17 01/08/17 01/08/17 Range/Units 18:16 18:07 17:40 WBC (4.8-10.8) K/uL RBC (3.80-5.20) Mil/uL Hgb (11.0-16.0) g/dL Hct (34.0-47.0) % MCV (81.0-99.0) fL MCH (27.0-31.0) pg MCHC (33.0-37.0) g/dL RDW (11.5-14.5) % Plt Count (130-400) K/uL MPV (7.2-11.7) fL Neut % (Auto) (50.0-75.0) % Lymph % (Auto) (20.0-40.0) % [place] % (Auto) (0.0-10.0) % Eos % (Auto) (0.0-4.0) % Baso % (Auto) (0.0-2.0) % Neut # (1.8-7.0) K/uL Lymph # (1.0-4.3) K/uL [place] # (0.0-0.8) K/uL Eos # (0.0-0.7) K/uL Baso # (0.0-0.2) K/uL Neutrophils % (Manual) (50-75) % Band Neutrophils % (0-2) % Lymphocytes % (Manual) (20-40) % Monocytes % (Manual) (0-10) % Metamyelocytes % (0-0) % Toxic Granulation Platelet Estimate (NORMAL) Plt Clumps, EDTA Large Platelets Polychromasia Hypochromasia (manual) Poikilocytosis (manual Anisocytosis (manual) Microcytosis (manual) Macrocytosis (manual) Target Cells PT (9.7-12.2) SECONDS INR APTT (21-34) SECONDS D-Dimer, Quantitative (0-243) ng/mlDDU Puncture Site pCO2 (35-45) mm/Hg pO2 50 (30-55) mm/Hg HCO3 (21-28) mmol/L ABG pH (7.35-7.45) ABG Total CO2 (22-28) mmol/L ABG O2 Saturation (95-98) % ABG Base Excess (-2.0-3.0) mmol/L Real Test ABG Potassium (3.6-5.2) mmol/L VBG pH 7.31 L (7.32-7.43) VBG pCO2 30 L (40-60) mmHg VBG HCO3 16.8 mmol/L VBG Total CO2 16.0 L (22-28) mmol/L VBG O2 Sat (Calc) 84.5 H (40-65) % VBG Base Excess -9.8 L (0.0-2.0) mmol/L VBG Potassium 5.6 H (3.6-5.2) mmol/L A-a O2 Difference mm/Hg Respiratory Index Glucose 100 (65-105) mg/dl Lactate 17.1 H* (0.7-2.1) mmol/L Vent Mode Mechanical Rate FiO2 % Tidal Volume PEEP Crit Value Called To do Waleska Crit Value Called By Delvin Crit Value Read Back Y Blood Gas Notified Time 1811 Sodium 144.0 142 (132-148) mmol/L Potassium 4.3 (3.6-5.2) mmol/L Chloride 109.0 H 103 (98-107) mmol/L Carbon Dioxide 13 L (22-30) mmol/L Anion Gap 30 H (10-20) BUN 23 H (7-17) mg/dL Creatinine 0.8 (0.7-1.2) mg/dL Est GFR ( Amer) > 60 Est GFR (Non-Af Amer) > 60 Random Glucose 98 (65-105) mg/dL Calcium 12.0 H (8.6-10.4) mg/dl Phosphorus 3.3 (2.5-4.5) mg/dL Magnesium 2.2 (1.6-2.3) mg/dL Total Bilirubin 1.5 H (0.2-1.3) mg/dL AST 147 H D (14-36) U/L ALT 48 (9-52) U/L Alkaline Phosphatase 261 H (38-126) U/L Troponin I 0.0690 (0.00-0.120) ng/mL Total Protein 6.2 L (6.3-8.3) g/dL Albumin 2.7 L (3.5-5.0) g/dL Globulin 3.6 (2.2-3.9) gm/dL Albumin/Globulin Ratio 0.8 L (1.0-2.1) Free T4 1.17 (0.78-2.19) ng/dL Total T3 0.494 L (1.49-2.60) nmol/L TSH 3rd Generation 1.75 (0.46-4.68) mIU/L Arterial Blood Potassium (3.6-5.2) mmol/L Venous Blood Potassium 5.6 H (3.6-5.2) mmol/L Urine Color (YELLOW) Urine Clarity (Clear) Urine pH (5.0-8.0) Ur Specific [place] (1.003-1.030) Urine Protein (NEGATIVE) mg/dL Urine Glucose (UA) (Normal) mg/dL Urine Ketones (NEGATIVE) mg/dL Urine Blood (NEGATIVE) Urine Nitrate (NEGATIVE) Urine Bilirubin (NEGATIVE) Urine Urobilinogen (0.2-1.0) mg/dL Ur Leukocyte Esterase (Negative) Ryne/uL Urine WBC (Auto) (0-5) /hpf Urine RBC (Auto) (0-3) /hpf Ur Squamous Epith Cells (0-5) /hpf Hyaline Casts (0-2) /lpf Blood Type Antibody Screen 01/08/17 01/08/17 Range/Units 17:40 17:40 WBC 10.2 (4.8-10.8) K/uL RBC 2.94 L (3.80-5.20) Mil/uL Hgb 8.0 L (11.0-16.0) g/dL Hct 25.7 L (34.0-47.0) % MCV 87.5 D (81.0-99.0) fL MCH 27.2 (27.0-31.0) pg MCHC 31.1 L (33.0-37.0) g/dL RDW 21.3 H (11.5-14.5) % Plt Count 337 (130-400) K/uL MPV 8.6 (7.2-11.7) fL Neut % (Auto) 71.5 (50.0-75.0) % Lymph % (Auto) 2.5 L (20.0-40.0) % [place] % (Auto) 24.8 H (0.0-10.0) % Eos % (Auto) 0.1 (0.0-4.0) % Baso % (Auto) 1.1 (0.0-2.0) % Neut # 7.3 H (1.8-7.0) K/uL Lymph # 0.2 L (1.0-4.3) K/uL [place] # 2.5 H (0.0-0.8) K/uL Eos # 0.0 (0.0-0.7) K/uL Baso # 0.1 (0.0-0.2) K/uL Neutrophils % (Manual) 74 (50-75) % Band Neutrophils % 5 H (0-2) % Lymphocytes % (Manual) 7 L (20-40) % Monocytes % (Manual) 14 H (0-10) % Metamyelocytes % (0-0) % Toxic Granulation Platelet Estimate Normal (NORMAL) Plt Clumps, EDTA Present Large Platelets Polychromasia Hypochromasia (manual) Slight Poikilocytosis (manual Anisocytosis (manual) Slight Microcytosis (manual) Macrocytosis (manual) Target Cells PT 18.9 H (9.7-12.2) SECONDS INR 1.7 APTT 35 H (21-34) SECONDS D-Dimer, Quantitative 1041 H (0-243) ng/mlDDU Puncture Site pCO2 (35-45) mm/Hg pO2 (30-55) mm/Hg HCO3 (21-28) mmol/L ABG pH (7.35-7.45) ABG Total CO2 (22-28) mmol/L ABG O2 Saturation (95-98) % ABG Base Excess (-2.0-3.0) mmol/L Real Test ABG Potassium (3.6-5.2) mmol/L VBG pH (7.32-7.43) VBG pCO2 (40-60) mmHg VBG HCO3 mmol/L VBG Total CO2 (22-28) mmol/L VBG O2 Sat (Calc) (40-65) % VBG Base Excess (0.0-2.0) mmol/L VBG Potassium (3.6-5.2) mmol/L A-a O2 Difference mm/Hg Respiratory Index Glucose (65-105) mg/dl Lactate (0.7-2.1) mmol/L Vent Mode Mechanical Rate FiO2 % Tidal Volume PEEP Crit Value Called To Crit Value Called By Crit Value Read Back Blood Gas Notified Time Sodium (132-148) mmol/L Potassium (3.6-5.2) mmol/L Chloride (98-107) mmol/L Carbon Dioxide (22-30) mmol/L Anion Gap (10-20) BUN (7-17) mg/dL Creatinine (0.7-1.2) mg/dL Est GFR ( Amer) Est GFR (Non-Af Amer) Random Glucose (65-105) mg/dL Calcium (8.6-10.4) mg/dl Phosphorus (2.5-4.5) mg/dL Magnesium (1.6-2.3) mg/dL Total Bilirubin (0.2-1.3) mg/dL AST (14-36) U/L ALT (9-52) U/L Alkaline Phosphatase (38-126) U/L Troponin I (0.00-0.120) ng/mL Total Protein (6.3-8.3) g/dL Albumin (3.5-5.0) g/dL Globulin (2.2-3.9) gm/dL Albumin/Globulin Ratio (1.0-2.1) Free T4 (0.78-2.19) ng/dL Total T3 (1.49-2.60) nmol/L TSH 3rd Generation (0.46-4.68) mIU/L Arterial Blood Potassium (3.6-5.2) mmol/L Venous Blood Potassium (3.6-5.2) mmol/L Urine Color (YELLOW) Urine Clarity (Clear) Urine pH (5.0-8.0) Ur Specific [place] (1.003-1.030) Urine Protein (NEGATIVE) mg/dL Urine Glucose (UA) (Normal) mg/dL Urine Ketones (NEGATIVE) mg/dL Urine Blood (NEGATIVE) Urine Nitrate (NEGATIVE) Urine Bilirubin (NEGATIVE) Urine Urobilinogen (0.2-1.0) mg/dL Ur Leukocyte Esterase (Negative) Ryne/uL Urine WBC (Auto) (0-5) /hpf Urine RBC (Auto) (0-3) /hpf Ur Squamous Epith Cells (0-5) /hpf Hyaline Casts (0-2) /lpf Blood Type Antibody Screen Laboratory Results - last 24 hr 01/08/17 01/08/17 01/08/17 17:40 17:40 17:40 WBC 10.2 RBC 2.94 L Hgb 8.0 L Hct 25.7 L MCV 87.5 D MCH 27.2 MCHC 31.1 L RDW 21.3 H Plt Count 337 MPV 8.6 Neut % (Auto) 71.5 Lymph % (Auto) 2.5 L [place] % (Auto) 24.8 H Eos % (Auto) 0.1 Baso % (Auto) 1.1 Neut # 7.3 H Lymph # 0.2 L [place] # 2.5 H Eos # 0.0 Baso # 0.1 Neutrophils % (Manual) 74 Band Neutrophils % 5 H Lymphocytes % (Manual) 7 L Monocytes % (Manual) 14 H Metamyelocytes % Toxic Granulation Platelet Estimate Normal Plt Clumps, EDTA Present Large Platelets Polychromasia Hypochromasia (manual) Slight Poikilocytosis (manual Anisocytosis (manual) Slight Microcytosis (manual) Macrocytosis (manual) Target Cells PT 18.9 H INR 1.7 APTT 35 H D-Dimer, Quantitative 1041 H Puncture Site pCO2 pO2 HCO3 ABG pH ABG Total CO2 ABG O2 Saturation ABG Base Excess Real Test ABG Potassium VBG pH VBG pCO2 VBG HCO3 VBG Total CO2 VBG O2 Sat (Calc) VBG Base Excess VBG Potassium A-a O2 Difference Respiratory Index Glucose Lactate Vent Mode Mechanical Rate FiO2 Tidal Volume PEEP Crit Value Called To Crit Value Called By Crit Value Read Back Blood Gas Notified Time Sodium 142 Potassium 4.3 Chloride 103 Carbon Dioxide 13 L Anion Gap 30 H BUN 23 H Creatinine 0.8 Est GFR ( Amer) > 60 Est GFR (Non-Af Amer) > 60 Random Glucose 98 Calcium 12.0 H Phosphorus 3.3 Magnesium 2.2 Total Bilirubin 1.5 H AST 147 H D ALT 48 Alkaline Phosphatase 261 H Troponin I 0.0690 Total Protein 6.2 L Albumin 2.7 L Globulin 3.6 Albumin/Globulin Ratio 0.8 L Free T4 Total T3 0.494 L TSH 3rd Generation 1.75 Arterial Blood Potassium Venous Blood Potassium Urine Color Urine Clarity Urine pH Ur Specific [place] Urine Protein Urine Glucose (UA) Urine Ketones Urine Blood Urine Nitrate Urine Bilirubin Urine Urobilinogen Ur Leukocyte Esterase Urine WBC (Auto) Urine RBC (Auto) Ur Squamous Epith Cells Hyaline Casts Blood Type Antibody Screen 01/08/17 01/08/17 01/08/17 18:07 18:16 18:52 WBC RBC Hgb Hct MCV MCH MCHC RDW Plt Count MPV Neut % (Auto) Lymph % (Auto) [place] % (Auto) Eos % (Auto) Baso % (Auto) Neut # Lymph # [place] # Eos # Baso # Neutrophils % (Manual) Band Neutrophils % Lymphocytes % (Manual) Monocytes % (Manual) Metamyelocytes % Toxic Granulation Platelet Estimate Plt Clumps, EDTA Large Platelets Polychromasia Hypochromasia (manual) Poikilocytosis (manual Anisocytosis (manual) Microcytosis (manual) Macrocytosis (manual) Target Cells PT INR APTT D-Dimer, Quantitative Puncture Site pCO2 pO2 50 HCO3 ABG pH ABG Total CO2 ABG O2 Saturation ABG Base Excess Real Test ABG Potassium VBG pH 7.31 L VBG pCO2 30 L VBG HCO3 16.8 VBG Total CO2 16.0 L VBG O2 Sat (Calc) 84.5 H VBG Base Excess -9.8 L VBG Potassium 5.6 H A-a O2 Difference Respiratory Index Glucose 100 Lactate 17.1 H* Vent Mode Mechanical Rate FiO2 Tidal Volume PEEP Crit Value Called To Waleska, do Crit Value Called By Delvin Crit Value Read Back Y Blood Gas Notified Time 1811 Sodium 144.0 Potassium Chloride 109.0 H Carbon Dioxide Anion Gap BUN Creatinine Est GFR ( Amer) Est GFR (Non-Af Amer) Random Glucose Calcium Phosphorus Magnesium Total Bilirubin AST ALT Alkaline Phosphatase Troponin I Total Protein Albumin Globulin Albumin/Globulin Ratio Free T4 1.17 Total T3 TSH 3rd Generation Arterial Blood Potassium Venous Blood Potassium 5.6 H Urine Color Yellow Urine Clarity Clear Urine pH 5.[address] [place] 1.010 Urine Protein Negative Urine Glucose (UA) Normal Urine Ketones Negative Urine Blood Negative Urine Nitrate Negative Urine Bilirubin Negative Urine Urobilinogen 4.0 H Ur Leukocyte Esterase Neg Urine WBC (Auto) 1 Urine RBC (Auto) < 1 Ur Squamous Epith Cells < 1 Hyaline Casts 3-5 H Blood Type Antibody Screen 01/08/17 01/08/17 01/09/17 19:55 21:00 04:59 WBC RBC Hgb Hct MCV MCH MCHC RDW Plt Count MPV Neut % (Auto) Lymph % (Auto) [place] % (Auto) Eos % (Auto) Baso % (Auto) Neut # Lymph # [place] # Eos # Baso # Neutrophils % (Manual) Band Neutrophils % Lymphocytes % (Manual) Monocytes % (Manual) Metamyelocytes % Toxic Granulation Platelet Estimate Plt Clumps, EDTA Large Platelets Polychromasia Hypochromasia (manual) Poikilocytosis (manual Anisocytosis (manual) Microcytosis (manual) Macrocytosis (manual) Target Cells PT INR APTT D-Dimer, Quantitative Puncture Site Rr pCO2 38 pO2 61 H 82 HCO3 14.7 L ABG pH 7.19 L* ABG Total CO2 15.7 L ABG O2 Saturation 96.4 ABG Base Excess -13.0 L Real Test Pos ABG Potassium 4.8 VBG pH 7.35 VBG pCO2 30 L VBG HCO3 18.7 VBG Total CO2 17.5 L VBG O2 Sat (Calc) 93.0 H VBG Base Excess -7.7 L VBG Potassium 4.4 A-a O2 Difference 227.0 Respiratory Index 2.8 Glucose 85 66 Lactate 14.7 H* 14.6 H* Vent Mode Prvc Mechanical Rate 25 FiO2 50.0 Tidal Volume 450 PEEP 5 Crit Value Called To Er nurse adriel ortiz rn Crit Value Called By Jerome Diop juvenile detention officer Crit Value Read Back Y Y Blood Gas Notified Time 2102 509 Sodium 145.0 144.0 Potassium Chloride 110.0 H 113.0 H Carbon Dioxide Anion Gap BUN Creatinine Est GFR ( Amer) Est GFR (Non-Af Amer) Random Glucose Calcium Phosphorus Magnesium Total Bilirubin AST ALT Alkaline Phosphatase Troponin I Total Protein Albumin Globulin Albumin/Globulin Ratio Free T4 Total T3 TSH 3rd Generation Arterial Blood Potassium 4.8 Venous Blood Potassium 4.4 Urine Color Urine Clarity Urine pH Ur Specific [place] Urine Protein Urine Glucose (UA) Urine Ketones Urine Blood Urine Nitrate Urine Bilirubin Urine Urobilinogen Ur Leukocyte Esterase Urine WBC (Auto) Urine RBC (Auto) Ur Squamous Epith Cells Hyaline Casts Blood Type B POSITIVE Antibody Screen Negative 01/09/17 01/09/17 06:46 06:46 WBC 12.0 H RBC 2.69 L Hgb 7.3 L Hct 24.4 L MCV 90.8 D MCH 27.0 MCHC 29.7 L RDW 21.4 H Plt Count 292 MPV 8.7 Neut % (Auto) 79.7 H Lymph % (Auto) 3.9 L [place] % (Auto) 15.9 H Eos % (Auto) 0.2 Baso % (Auto) 0.3 Neut # 9.6 H Lymph # 0.5 L [place] # 1.9 H Eos # 0.0 Baso # 0.0 Neutrophils % (Manual) 64 Band Neutrophils % 19 H* Lymphocytes % (Manual) 1 L Monocytes % (Manual) 14 H Metamyelocytes % 2 H Toxic Granulation Present Platelet Estimate Normal Plt Clumps, EDTA Large Platelets Present Polychromasia Slight Hypochromasia (manual) Slight Poikilocytosis (manual Slight Anisocytosis (manual) Slight Microcytosis (manual) Slight Macrocytosis (manual) Slight Target Cells Slight PT INR APTT D-Dimer, Quantitative Puncture Site pCO2 pO2 HCO3 ABG pH ABG Total CO2 ABG O2 Saturation ABG Base Excess Real Test ABG Potassium VBG pH VBG pCO2 VBG HCO3 VBG Total CO2 VBG O2 Sat (Calc) VBG Base Excess VBG Potassium A-a O2 Difference Respiratory Index Glucose Lactate Vent Mode Mechanical Rate FiO2 Tidal Volume PEEP Crit Value Called To Crit Value Called By Crit Value Read Back Blood Gas Notified Time Sodium 142 Potassium 4.9 Chloride 106 Carbon Dioxide 14 L Anion Gap 27 H BUN 26 H Creatinine 0.8 Est GFR ( Amer) > 60 Est GFR (Non-Af Amer) > 60 Random Glucose 56 L Calcium 11.5 H Phosphorus 4.7 H Magnesium 2.2 Total Bilirubin 1.5 H AST 257 H D ALT 58 H D Alkaline Phosphatase 184 H D Troponin I Total Protein 5.9 L Albumin 2.5 L Globulin 3.4 Albumin/Globulin Ratio 0.7 L Free T4 Total T3 TSH 3rd Generation Arterial Blood Potassium Venous Blood Potassium Urine Color Urine Clarity Urine pH Ur Specific [place] Urine Protein Urine Glucose (UA) Urine Ketones Urine Blood Urine Nitrate Urine Bilirubin Urine Urobilinogen Ur Leukocyte Esterase Urine WBC (Auto) Urine RBC (Auto) Ur Squamous Epith Cells Hyaline Casts Blood Type Antibody Screen EKG/Cardiology Studies: Cardiology / EKG Studies 01/08/17 17:09 ELECTROCARDIOGRAM Stat Comment: Mode Of Transportation: BED Reason For Exam: chest pain 01/08/17 17:25 ELECTROCARDIOGRAM Stat Comment: Mode Of Transportation: BED Reason For Exam: chest pain
[2017-01-09] MEDS ORDERED: Dextrose 50% SYRINGE Inj (50 ml) ONE (11:35)
[2017-01-09] MEDS ORDERED: Sodium Bicarbonate (8.4%) 50 Meq Syringe ONE ×2 (11:35→11:44)
[2017-01-09 12:03] VITALS: BP 147/62; PULSE 133; RESP 25; TEMP 98.6
--- NOTE | 2017-01-09 12:41 | RAD ---
HISTORY: intubation COMPARISON: Comparison is made to the previous exam. FINDINGS: LUNGS: The patient status post intubation. The ET tube is seen at appropriate position. Interval appearance of bibasilar opacities likely atelectasis. PLEURA: No significant pleural effusion identified, no pneumothorax apparent. CARDIOVASCULAR: Normal. OSSEOUS STRUCTURES: No evidence of acute pathology in the osseous structures P VISUALIZED UPPER ABDOMEN: NG tube seen extending to the abdomen. Lucency in the upper abdomen suggestive of pneumoperitoneum. OTHER FINDINGS: None. IMPRESSION: Appropriate position of the ETT. Bibasilar opacities likely atelectasis.
[2017-01-10 09:33] VITALS: O2SAT 98
[2017-01-12] MEDS ORDERED: Influenza Vaccine 60 mcg/0.5 mL SYR (4YR UP) IM ONE (10:00)
[2017-01-12] MEDS ORDERED: Pneumococcal 23-Valent Vaccine IM ONE (11:00)
== END 2017-01-09 12:30 | DRG 871 ==
LOC: C.ER 17:05 → C.9I 21:14
PROVIDERS: ADMIT Internal Medicine; ATTEND Internal Medicine Pulmonary Disease
PROC: 5A1935Z Respiratory Ventilation, Less than 24 Consecutive Hours (ICD-10-PCS; principal; 2017-01-09)
PROC: 0BH17EZ Insertion of Endotracheal Airway into Trachea, Via Natural or Artificial Opening (ICD-10-PCS; 2017-01-09)
PROC: 30233K1 Transfusion of Nonautologous Frozen Plasma into Peripheral Vein, Percutaneous Approach (ICD-10-PCS; 2017-01-09)
DX: A41.9 Sepsis, unspecified organism (principal); K63.1 Perforation of intestine (nontraumatic); J96.00 Acute respiratory failure, unspecified whether with hypoxia or hypercapnia; C85.13 Unspecified B-cell lymphoma, intra-abdominal lymph nodes; E87.2 Acidosis; K66.8 Other specified disorders of peritoneum; I47.1 Supraventricular tachycardia; I48.91 Unspecified atrial fibrillation; I10 Essential (primary) hypertension; Z90.710 Acquired absence of both cervix and uterus